=== PATIENT | male | born 1955 | race Caucasian/White ===

== ENCOUNTER 2022-01-22 14:36 | Emergency (ER) | payer MEDICARE, OTHER, SELFPAY ==
--- NOTE | 2022-01-22 14:43 | ED.URI ---
HPI - URI/Sore Throat General Chief Complaint: Upper Respiratory Infection Stated Complaint: sore throat, cough, headache Time Seen by Provider: 01/22/22 15:39 Source: patient and RN notes reviewed Mode of arrival: ambulatory Limitations: no limitations History of Present Illness HPI Narrative: 66-year-old male presents concern for 2-3 day history of sore throat, headache, cough and chest congestion. He reports he has been taking some hysu-wen-gesakkw medications without relief. He denies fever, body aches, chills, sweats, nausea, vomiting, diarrhea MD elicited complaint: cough and sore throat Related Data Home Medications Medication Instructions Recorded Confirmed gabapentin 300 mg capsule mg 01/22/22 metformin 500 mg tablet mg 01/22/22 pravastatin 10 mg tablet mg 01/22/22 sertraline 100 mg tablet mg 01/22/22 telmisartan 80 mg tablet mg 01/22/22 Allergies Allergy/AdvReac Type Severity Reaction Status Date / Time amoxicillin [From Amoxil] Allergy Intermediate Other Verified 01/22/22 15:50 Review of Systems Review of Systems: CONSTITUTIONAL: Denies malaise. Reports chills, sweats, or fever. EYES: Denies visual changes, redness, or discharge. ENT: Reports rhinorrhea, congestion. Denies sinus pain, otalgia and sore throat. CARDIOVASCULAR: Denies chest pain, palpitations, or edema. RESPIRATORY: Reports cough, chest congestion, wheezing. Denies dyspnea. GASTROINTESTINAL: Denies abdominal pain, nausea, vomiting, diarrhea SKIN: Denies rash or itching. MUSCULOSKELETAL: Denies myalgia. NEUROLOGIC: Report headache. All systems reviewed & are unremarkable except as noted in HPI and below PMFSH Comments At time of signature, agree with nursing past medical, surgical, social and family history. There is no relevant family history pertinent to the presenting complaint Exam Narrative: GENERAL: Nontoxic-appearing and in no acute distress. HEAD: Normocephalic EYES: PERRLA, conjunctivae clear ENT: Nares clear, clear discharge. Mucous membranes moist. TM pearly kennedy with dull light reflex bilaterally; no tragal tenderness. Oropharynx not erythematous without lesions. Tonsils not enlarged and without exudate, no drooling, no hoarseness, no trismus, uvula midline. NECK: Supple. No lymphadenopathy CHEST: Expiratory wheeze throughout, otherwise Clear to auscultation, breath sounds equal. No wheezing, rhonchi, rales, or stridor. No respiratory distress, speaks in full sentences. HEART: Regular rate and rhythm. No murmur heard. SKIN: Warm, dry, no rash. NEURO: Alert and oriented x3. PSYCH: Normal mood and affect Course Course Emergency Course: Patient is aware of diagnosis, understands and agrees to treatment plan. Anticipatory guidance given. Patient agrees to follow-up as directed and is aware of reasons to seek care at the emergency department. Portions of this record may have been created with voice recognition software Level of Care: Express Care Visit Vital Signs Vital signs: Reviewed. MDM - URI/Sore Throat MDM Narrative Medical decision making narrative: Differential diagnosis considered: Belle virus, strep pharyngitis, allergic rhinitis, upper respiratory tract infection, sinusitis, rhinosinusitis, nasopharyngitis. viral pharyngitis, otitis media, otitis externa, pneumonia, bronchitis, viral cough syndrome, viral syndrome, and influenza. Exam findings show no acute concerns or changes; patient is non-toxic appearing and is in no distress. Patient is appropriate for outpatient treatment and follow-up. Lab Data Attestation: I reviewed the patient's lab results. Critical Care Time Critical Care Time Critical Care Time: No Discharge Plan Discharge Clinical Impression: Bronchitis Patient Disposition: Home, Self-Care Condition: Stable Instructions: Acute Bronchitis (ED) Additional Instructions: Viral illness may last between 7-21 days; antibiotics do not cure viral illness and are NOT recommende
[2022-01-22 14:51] VITALS: BP 111/80; PULSE 110; RESP 16; TEMP 36.4; O2SAT 96
== END 2022-01-22 15:58 | disposition home or self-care (01) ==
PROVIDERS: Emergency Provider Nurse Practitioner
DX: J40 Bronchitis, not specified as acute or chronic (principal); Z20.822 Contact with and (suspected) exposure to COVID-19
CPT/HCPCS: 87081; 87426; 87804; 87880; 99213; C9803; G0463

== ENCOUNTER 2022-01-27 19:07 | Emergency (ER) | payer MEDICARE, OTHER, SELFPAY ==
[2022-01-27 19:16] VITALS: BP 129/84; PULSE 94; RESP 20; TEMP 37.4; O2SAT 97
[2022-01-27 19:20] VITALS: O2SAT 97
--- NOTE | 2022-01-27 19:34 | ED.URI ---
HPI - URI/Sore Throat General Chief Complaint: Upper Respiratory Infection Stated Complaint: chest pain, trouble breathing Time Seen by Provider: 01/27/22 19:13 Source: patient Mode of arrival: ambulatory Limitations: no limitations History of Present Illness HPI Narrative: Mr. Myers is a 66-year-old male patient presenting to clinic today with complaints of productive cough, feeling feverish, right-sided chest discomfort when taking a deep breath, and shortness of breath x5 days. He reports he is bringing up some yellow phlegm. States he was sick 4 days previously before seeking treatment on Tuesday. He reports that they did a COVID, flu, and strep test on Tuesday and that came back all negative. He reports that he has been doing the albuterol inhaler and that has not been helping his symptoms. States he has been having use it every 4 hours with minimal relief. He is concerned that he may have pneumonia. MD elicited complaint: sore throat and nasal congestion Related Data Home Medications Medication Instructions Recorded Confirmed metformin 500 mg tablet 500 mg DIRECTED 01/22/22 01/27/22 pravastatin 10 mg tablet 10 mg DIRECTED 01/22/22 01/27/22 sertraline 100 mg tablet 100 mg DIRECTED 01/22/22 01/27/22 cholestyramine (with sugar) 4 gram 1 ea PO BID 01/27/22 01/27/22 powder for susp in a packet Allergies Allergy/AdvReac Type Severity Reaction Status Date / Time amoxicillin [From Amoxil] Allergy Intermediate Other Verified 01/27/22 19:12 Review of Systems Review of Systems: Pertinent positives per HPI. Patient denies any rash, headache, visual changes, dizziness, palpitations, nausea, vomiting, diarrhea, constipation, abdominal pain, or any urinary issues. [facility] Comments At the time of my signature, I reviewed and agree with the nursing past medical, surgical, social, and family history. There is no relevant family history pertinent to the patient complaint. Exam Narrative: General: Well-developed, obese, in no apparent distress Head: Normocephalic, atraumatic Eyes: Pupils equally round and reactive to light bilaterally, EOM intact, sclera and conjunctive clear, no discharge, lids normal Ears: TMs intact and clear, ear canals clear, no drainage, grossly hearing normal. Nose: Nares patent, clear nasal discharge, no inflammation, no sinus tenderness. Mouth: Oral pharynx without lesions or masses, good dentition, MMM. Neck: Supple, trachea midline, no enlargement of anterior or posterior cervical nodes, no thyroid masses or goiter palpable. Chest: Even rise and fall of chest wall, tender to palpation over the right anterior chest, pain with inspiration over the right chest wall Cardio: Regular rate and rhythm, s1 and s2 normal, no murmur appreciated. Resp: Expiratory wheezing and inspiratory rhonchi throughout lung douglas, no rales or rubs, able to speak in full sentences, SpO2 is 97% on room Course Course Emergency Course: Portions of this record may have been created with voice recognition software. Level of Care: Express Care Visit Vital Signs Vital signs: Vital Signs Temperature 37.4 C 01/27/22 19:16 Pulse Rate 94 01/27/22 19:16 Respiratory Rate 20 01/27/22 19:16 Blood Pressure 129/84 01/27/22 19:16 Pulse Oximetry 97 01/27/22 19:16 Temperature 37.4 C 01/27/22 19:16 Pulse Rate 94 01/27/22 19:16 Respiratory Rate 20 01/27/22 19:16 Blood Pressure 129/84 01/27/22 19:16 Pulse Oximetry 97 01/27/22 19:20 Oxygen Delivery Room Air 01/27/22 19:40 Vital signs reviewed MDM - URI/Sore Throat MDM Narrative Medical decision making narrative: At the time of visit patient is resting comfortably on exam table. Patient has expiratory wheezing and inspiratory rhonchi with decreased air flow, hand-held neb treatment DuoNeb given in the clinic today and this improved his air flow. I suspect the patient has a lower respiratory infection/bronchitis. Prescriptions for
[2022-01-27] MEDS: IPRATROPIUM BR 0.02% INH SOLN 0.5 MG/2.5 ML VIAL INHALATION (19:46)
[2022-01-27] MEDS: ALBUTEROL SULFATE NEB 2.5 MG/3 ML INH INHALATION (19:47)
[2022-01-27 20:20] VITALS: O2SAT 96
== END 2022-01-27 20:21 | disposition home or self-care (01) ==
PROVIDERS: Emergency Provider Nurse Practitioner Family
DX: J20.9 Acute bronchitis, unspecified (principal)
CPT/HCPCS: 94640; 99213; G0463

== ENCOUNTER 2022-11-23 15:02 | Emergency (ER) | payer MEDICARE, OTHER, SELFPAY ==
--- NOTE | ~2022-11-23 | XR_ITS ---
XR finger 3rd LT min 2V DATE: 11/23/2022 15:34 INDICATION: Third digit pain after fall 6 weeks ago TECHNIQUE: 3 views of third digit COMPARISON: None FINDINGS: There is polyarticular osteoarthritis including proximal and distal interphalangeal joints of the third digit in addition to interphalangeal joints of the other included digits and at the juliet caphe joint. No fracture, dislocation, periosteal reaction or bone destruction of the left third digit is detected . No subcutaneous emphysema or radiopaque foreign body. IMPRESSION: Polyarticular osteoarthritis No fracture or dislocation of left third digit Reviewed, dictated and finalized at location L.
--- NOTE | ~2022-11-23 | XR_ITS ---
XR hand LT 2V DATE: 11/23/2022 15:34 INDICATION: Pain of left third digit after fall 6 weeks ago TECHNIQUE: AP and lateral views COMPARISON: None FINDINGS: There is polyarticular osteoarthritis involving the triscaphe and to a lesser extent first carpometacarpal joint. There is osteoarthritic change at multiple interphalangeal joints, most severe at the distal interphalangeal joint of the second digit. No fracture, dislocation, periosteal reaction or bone destruction, erosive change or chondrocalcinosi s is detected. IMPRESSION: Polyarticular osteoarthritis Reviewed, dictated and finalized at location L.
[2022-11-23 15:17] VITALS: BP 142/67; PULSE 99; RESP 17; TEMP 36.5; O2SAT 96
--- NOTE | 2022-11-23 16:17 | ED.UPPEXIN ---
HPI - Extremity Injury (Upper) General Chief Complaint: Extremity Injury, Upper Stated Complaint: left hand injury Time Seen by Provider: 11/23/22 15:24 Source: patient Mode of arrival: ambulatory Limitations: no limitations History of Present Illness HPI narrative: This is a 67-year-old male that presents to the emergency department for left hand pain after an injury several weeks ago. Reports he slipped and fell in the shower. Reports pain and decreased range of motion in the left hand, especially of the left third finger. Denies erythema, edema, or numbness Related Data Home Medications Medication Instructions Recorded Confirmed metformin 500 mg tablet 500 mg DIRECTED 01/22/22 01/27/22 pravastatin 10 mg tablet 10 mg DIRECTED 01/22/22 01/27/22 sertraline 100 mg tablet 100 mg DIRECTED 01/22/22 01/27/22 cholestyramine (with sugar) 4 gram 1 ea PO BID 01/27/22 01/27/22 powder for susp in a packet Allergies Allergy/AdvReac Type Severity Reaction Status Date / Time amoxicillin [From Amoxil] Allergy Intermediate Other Verified 11/23/22 15:20 Review of Systems Review of Systems: CONSTITUTIONAL: Denies fever SKIN: Denies rash MUSCULOSKELETAL: Reports joint pain, and myalgia. NEUROLOGIC: Denies numbness, or weakness. All systems reviewed & are unremarkable except as noted in HPI and below PMFSH Past Medical History Medical History (Updated 11/23/22 @ 16:28 by Toña White PA-C) History of diabetes mellitus Social History Social History (Updated 11/23/22 @ 16:30 by Toña White PA-C) Substance use: never Exam Narrative: GENERAL: Well-appearing, well-nourished, and in no acute distress. HEAD: Normocephalic, atraumatic. EYES: EOMI. EXTREMITIES: Normal range of motion, except decreased active ROM in the left third finger due to pain. No edema or obvious deformity. Normal radial pulse. Normal sensation SKIN: Warm, dry, no rash. NEURO: No focal deficits. Alert and oriented x3. PSYCH: Normal mood and affect Course Course Emergency Course: Patient was updated on work-up and agrees with plan of care Vital Signs Vital signs: Vital Signs Temperature 97.7 F 11/23/22 15:17 Pulse Rate 99 11/23/22 15:17 Respiratory Rate 17 11/23/22 15:17 Blood Pressure 142/67 H 11/23/22 15:17 Pulse Oximetry 96 11/23/22 15:17 Oxygen Delivery Room Air 11/23/22 15:17 Temperature 97.7 F 11/23/22 15:17 Pulse Rate 99 11/23/22 15:17 Respiratory Rate 17 11/23/22 15:17 Blood Pressure 142/67 H 11/23/22 15:17 Pulse Oximetry 96 11/23/22 15:17 Oxygen Delivery Room Air 11/23/22 15:17 Procedures Orthopedic Splinting/Casting Injury #1: Splinting/Casting Date: 11/23/22 Splinting/Casting Time: 16:33 Side: left Upper Extremity Injury Location: finger Upper Extremity Immobilizer: finger (other) Splint: prefabricated Pre-Formed: metal foam finger splint Pre-Procedure Neuro Vascular Exam: normal Post-Procedure Neuro Vascular Exam: normal MDM - Extremity Injury (Upper) MDM Narrative Medical decision making narrative: Patient presents to the emergency department for left third finger pain after an injury several weeks prior. Does have decreased range of motion in the finger due to pain. Reports sensation of the finger catching. He is neurovascularly intact. Left third finger and hand x-rays show polyarticular osteoarthritis. Patient was updated on work-up. Placed in a finger splint and will be given follow-up with hand surgery. He was given warnings to return to the ER Differential Diagnosis Differential diagnosis: Likely finger sprain and other (dislocation of finger, finger fracture, hand fracture) Imaging Data Radiologist's impression: ITS Impressions Finger X-Ray 11/23/22 15:37 IMPRESSION: Polyarticular osteoarthritis No fracture or dislocation of left third digit Hand X-Ray 11/23/22
== END 2022-11-23 16:24 | disposition home or self-care (01) ==
PROVIDERS: Emergency Provider Physician Assistant; PCP Internal Medicine
DX: S63.613A Unspecified sprain of left middle finger, initial encounter (principal); E11.9 Type 2 diabetes mellitus without complications; Z79.84 Long term (current) use of oral hypoglycemic drugs; M19.042 Primary osteoarthritis, left hand; M18.9 Osteoarthritis of first carpometacarpal joint, unspecified; M19.032 Primary osteoarthritis, left wrist; W18.2XXA Fall in (into) shower or empty bathtub, initial encounter; Y93.E1 Activity, personal bathing and showering
CPT/HCPCS: 29130; 73120; 73140; 99283

== ENCOUNTER 2023-01-20 08:29 | Outpatient (CLI) | payer MEDICARE, OTHER, SELFPAY ==
[2023-01-20 19:44] LABS: Alanine Aminotransferase 28 U/L (6-50); Albumin Level 4.5 g/dL (3.5-5.1); Alkaline Phosphatase 51 U/L (38-126); Anion Gap 7 mmol/L (8-16); Aspartate Amino Transferase 27 U/L (17-59); Bilirubin,Total 0.6 mg/dL (0.2-1.3); Blood Urea Nitrogen 15 mg/dL (9-20); Calcium 8.9 mg/dL (8.4-10.2); Carbon Dioxide 28 mmol/L (22-30); Chloride 100 mmol/L (98-107); Cholesterol 192 mg/dL (0-200); Estimated Glomerular Filt Rate > 60; Glucose 155 mg/dL (65-110); HDL Direct 28 mg/dL; Potassium 4.4 mmol/L (3.4-5.0); Sodium 135 mmol/L (137-145); Triglycerides 429 mg/dL (<150)
[2023-01-20 19:54] LABS: LDL Cholesterol Direct 79 mg/dL
[2023-01-20 20:00] LABS: Hemoglobin A1C 7.3 % (<5.7)
[2023-01-20 20:12] LABS: Prostate Specific Antigen 1.7 ng/mL (< OR = 4.0)
[2023-01-20 20:18] LABS: Basophils Percent Auto 0.8 % (0.2-1.2); Eosinophils Absolute Auto 0.2 K/mm3 (0-0.3); Hematocrit 41.7 % (42.0-52.0); Hemoglobin 13.6 g/dL (14.0-18.0); Immature Granulocyte Absolute 0.02 K/mm3 (0.00-0.031); Immature Granulocyte Percent A 0.4 % (0-0.5); Lymphocytes Percent Auto 30.4 % (18.3-44.2); Mean Corpuscular HGB Conc 32.6 g/dl (32-36); Mean Corpuscular Hemoglobin 30.3 pg (26-34); Mean Corpuscular Volume 92.9 fl (80-100); Mean Platelet Volume 11.2 fl (7.4-10.4); Monocytes Absolute Auto 0.4 K/mm3 (0.1-0.6); Monocytes Percent Auto 8.7 % (2.6-8.5); Neutrophils Absolute Auto 2.8 K/mm3 (1.3-6.7); Neutrophils Percent Auto 56.7 % (45.5-73.1); Platelet Count Result 181 k/mm3 (150-375); Red Blood Count 4.49 M/mm3 (4.6-6.20); White Blood Count 4.9 K/mm3 (4.5-10.0)
== END 2023-01-20 08:30 | disposition home or self-care (01) ==
LOC: ANHGOSHLAB 08:30
PROVIDERS: PCP Emergency Medicine; Visit Provider Emergency Medicine
DX: Z12.5 Encounter for screening for malignant neoplasm of prostate (principal); K58.9 Irritable bowel syndrome, unspecified; E11.9 Type 2 diabetes mellitus without complications
CPT/HCPCS: 36415; 80053; 80061; 83036; 84153; 85025; G0103

== ENCOUNTER 2023-02-07 10:29 | Outpatient (RCR) | payer MEDICARE, OTHER, SELFPAY | END 2023-05-02 08:48 | disposition home or self-care (01) | LOC: ANHDMC 10:29 | PROVIDERS: PCP Emergency Medicine; Visit Provider Emergency Medicine | DX: E11.65 Type 2 diabetes mellitus with hyperglycemia (principal); Z71.89 Other specified counseling | CPT/HCPCS: G0108 ==

== ENCOUNTER 2023-05-09 10:45 | Outpatient (RCR) | payer MEDICARE, SELFPAY ==
--- NOTE | 2023-04-20 11:34 | OTOPEVAL1 ---
Assessment and note entered by Aaron Martin, FRANSISCA/Emerald, CHT Evaluation Information Diagnosis OA left hand, trigger finger left hand, lateral epicondylitis left elbow Subjective Information Patient reports hand pain and stiffness began after he fell in the shower in October. Reports since then his middle finger has been very stiff and painful. He reports difficulties with making a fist and when he makes a fist the finger gets stuck and he has to use his right hand to pull the finger straight again. Severe pain when the finger triggers. No pain at rest otherwise. Assessment OT Clinical Summary Patient referred to OT with dx of OA, trigger finger, and lateral epicondylitis. 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 Issued an oval-8 splint to immobilize the PIP joint of this finger. Issued passive ROM/stretches to improve functional flexibility and to reduce tendon strain. He demonstrates excellent understanding of all materials. Continued skilled OT indicated to progress HEP, for manual tx, modalities, and therapeutic exercises/activities to facilitate optimal functional use of his left UE. Plan of Care Interventions Therapeutic Exercise,Manual Therapy,Therapeutic Activities,Hot Pack/Cold Pack,Check Out for Orthotic/Pr,Ultrasound,Paraffin OT Services Indicated Yes Treatment Frequency and 1x/week for 4 visits Duration These treatments will address the objective and functional deficits as defined above. The patient will be advanced safely and appropriately in order for the patient to progress towards his/her prior level of function. Additional exercises will be introduced and as well as a comprehensive home exercise program upon discharge, if needed, ?to ensure carryover of functional gains achieved in the clinic. This treatment plan has been reviewed and agreement upon by the patient.
--- NOTE | 2023-05-04 10:33 | PCOTNOTE ---
Patient called & cancelled scheduled appointment this date due to being sick.
--- NOTE | 2023-05-19 11:17 | OTOPDC ---
Assessment and note entered by Aaron Martin, OTR/L, CHT Discharge Notification 05/19/23 OT Clinical Summary Patient called to be discharged from therapy. He reports his hand doesn't seem to be getting any better. At this time he is scheduled for more testing on his hand and he wishes to pursue these options before coming back for more therapy. Discharging OT.
== END 2023-05-20 13:51 | disposition home or self-care (01) ==
LOC: ANHOT 10:45
PROVIDERS: PCP Emergency Medicine; Visit Provider Emergency Medicine
DX: M19.042 Primary osteoarthritis, left hand (principal); M65.332 Trigger finger, left middle finger; M77.12 Lateral epicondylitis, left elbow
CPT/HCPCS: 97035; 97110; 97165; L3925

== ENCOUNTER 2023-05-24 13:27 | Outpatient (CLI) | payer MEDICARE, SELFPAY ==
--- NOTE | 2023-05-24 14:00 | NEURO_ITS ---
Impression: # Complains of left upper extremity trauma/numbness. 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 # Needle/EMG exam mildly neurogenic in proximal muscles. # Clinical correlation recommended; Could be related to trauma. Nerve Conduction Studies Anti Sensory Summary Table Stim Site NR Peak (ms) P-T Amp (?V) Site1 Site2 Delta-P (ms) Dist (cm) Bright (m/s) Left Median Anti Sensory (2-3nd Digit) Wrist 3.0 24.0 Wrist 2-3nd Digit 3.0 14.0 47 Wrist 3.2 33.6 Wrist 2-3nd Digit 3.0 14.0 47 Left Radial Anti Sensory (Base 1st Digit) Wrist 1.8 25.4 Wrist Base 1st Digit 1.8 0.0 Left Ulnar Anti Sensory (5th Digit) Wrist 2.9 21.1 Wrist 5th Digit 2.9 14.0 48 Motor Summary Table Stim Site NR Onset (ms) O-P Amp (mV) Site1 Site2 Delta-0 (ms) Dist (cm) Bright (m/s) Left Median Motor (Abd Poll Brev) Wrist 2.8 3.6 Elbow Wrist 5.6 30.0 54 Elbow 8.4 2.7 Left Ulnar Motor (Abd Dig Minimi) Wrist 2.3 5.7 A Elbow Wrist 6.5 33.0 51 A Elbow 8.8 3.8 B Elbow Wrist 4.7 22.0 47 B Elbow 7.0 2.7 F Wave Studies NR F-Lat (ms) L-R F-Lat (ms) Left Median (Mrkrs) (Abd Poll Brev) 30.03 Left Ulnar (Mrkrs) (Abd Dig Min) 31.70 EMG Side Muscle Nerve Root Ins Act Fibs Amp Dur Recrt Comment Left 1stDorInt Ulnar C8-T1 Nml Nml Nml >12ms +1 Left Ext Indicis Radial (Post Int) C7-8 Nml Nml Nml >12ms +1 Left Ext Digitorum Radial (Post Int) C7-8 Nml Nml Nml Nml Nml Left BrachioRad Radial C5-6 Nml Nml Nml Nml Nml Left PronatorTeres Median C6-7 Nml Nml Nml Nml Nml Left Abd Poll Brev Median C8-T1 Nml Nml Nml Nml Nml Left ABD Dig Min Ulnar C8-T1 Nml Nml Nml Nml Nml Left Biceps Musculocut C5-6 Nml Nml Nml Nml Nml Left Triceps Radial C6-7-8 Nml Nml Nml >12ms +1 Left Deltoid Axillary C5-6 Nml Nml Nml Nml Nml Left PronatorQuad Median (Ant Int) C7-8, Nml Nml Nml Nml Nml Left FlexCarpiUln Ulnar C8,T1 Nml Nml Nml Nml Nml Left Abd Poll Long Radial (Post Int) C7-8 Nml Nml Nml Nml Nml MTDD
== END 2023-05-24 13:28 | disposition home or self-care (01) ==
PROVIDERS: PCP Emergency Medicine; Visit Provider Emergency Medicine
DX: R20.2 Paresthesia of skin (principal); G56.22 Lesion of ulnar nerve, left upper limb
CPT/HCPCS: 95886; 95909

== ENCOUNTER 2023-06-20 15:21 | Outpatient (CLI) | payer MEDICARE, SELFPAY ==
[2023-06-20 18:45] LABS: Hemoglobin A1C 8.1 % (<5.7)
[2023-06-20 19:09] LABS: Vitamin D 25 Hydroxy 39.2 ng/mL
[2023-06-20 19:11] LABS: Basophils Absolute Auto 0.1 K/mm3 (0.0-0.1); Basophils Percent Auto 0.8 % (0.2-1.2); Eosinophils Absolute Auto 0.1 K/mm3 (0-0.3); Eosinophils Percent Auto 1.9 % (0-4.4); Hematocrit 43.4 % (42.0-52.0); Hemoglobin 14.2 g/dL (14.0-18.0); Immature Granulocyte Absolute 0.01 K/mm3 (0.00-0.031); Immature Granulocyte Percent A 0.2 % (0-0.5); Lymphocytes Absolute Auto 1.79 K/mm3 (0.9-3.2); Lymphocytes Percent Auto 28.8 % (18.3-44.2); Mean Corpuscular HGB Conc 32.7 g/dl (32-36); Mean Corpuscular Volume 91.8 fl (80-100); Mean Platelet Volume 11.8 fl (7.4-10.4); Monocytes Absolute Auto 0.5 K/mm3 (0.1-0.6); Monocytes Percent Auto 7.6 % (2.6-8.5); Neutrophils Absolute Auto 3.8 K/mm3 (1.3-6.7); Neutrophils Percent Auto 60.7 % (45.5-73.1); Platelet Count Result 183 k/mm3 (150-375); Red Blood Count 4.73 M/mm3 (4.6-6.20); Red Cell Distribution Width 12.7 % (11.5-14.5); White Blood Count 6.2 K/mm3 (4.5-10.0)
[2023-06-20 19:23] LABS: Thyroid Stimulating Hormone Reflex 0.928 uIU/mL (0.465-4.68)
[2023-06-20 19:56] LABS: Alanine Aminotransferase 33 U/L (6-50); Albumin Level 4.6 g/dL (3.5-5.1); Alkaline Phosphatase 54 U/L (38-126); Anion Gap 9 mmol/L (8-16); Aspartate Amino Transferase 53 U/L (17-59); Bilirubin,Total 0.9 mg/dL (0.2-1.3); Blood Urea Nitrogen 16 mg/dL (9-20); Calcium 9.3 mg/dL (8.4-10.2); Carbon Dioxide 26 mmol/L (22-30); Chloride 103 mmol/L (98-107); Cholesterol 192 mg/dL (0-200); Estimated Glomerular Filt Rate > 60; Glucose 138 mg/dL (65-110); HDL Direct 31 mg/dL; Potassium 4.8 mmol/L (3.4-5.0); Sodium 138 mmol/L (137-145); Triglycerides 380 mg/dL (<150)
[2023-06-20 20:11] LABS: LDL Cholesterol Direct 87 mg/dL
== END 2023-06-20 15:22 | disposition home or self-care (01) ==
LOC: ANHGOSHLAB 15:23
PROVIDERS: PCP Emergency Medicine; Visit Provider Emergency Medicine
DX: R53.83 Other fatigue (principal); F32.9 Major depressive disorder, single episode, unspecified; E11.9 Type 2 diabetes mellitus without complications
CPT/HCPCS: 36415; 80053; 80061; 82306; 82607; 83036; 84443; 85025

== ENCOUNTER 2023-06-21 13:56 | Outpatient (NON) | payer MEDICARE, SELFPAY ==
[2023-06-21 19:57] LABS: Creatinine Urine 194.5 mg/dL
[2023-06-21 20:01] LABS: MALB Creatinine Ratio 11.4 mg/g (0-30); Microalbumin Urine Random 22.2 mg/L (0-16.7)
== END 2023-06-21 13:57 | disposition home or self-care (01) ==
PROVIDERS: PCP Emergency Medicine; Visit Provider Emergency Medicine
DX: E11.9 Type 2 diabetes mellitus without complications (principal)
CPT/HCPCS: 82043

== ENCOUNTER 2023-09-22 08:09 | Day surgery (SDC) | payer MEDICARE, SELFPAY ==
[2023-08-26 11:27] VITALS: BMI 32.5
--- NOTE | 2023-09-22 07:22 | WPDANESEPPF ---
Anes - Initial Pre Proc Eval Procedure: Operation Date: 09/22/23 10:30 Proposed Procedures p Screening Colonoscopy - Alexander Couch MD Date/Time: 09/22/23 07:22 Surgeon: Alexander Couch MD Pre Op Diagnosis: Neoplasm Screening Patient Data Age: 68 Gender: M Height: 1.85 m Weight: 109 kg Allergies Allergy/AdvReac Type Severity Reaction Status Date / Time amoxicillin [From Amoxil] Allergy Intermediate Other Verified 09/22/23 09:11 Home Medications Medication Instructions Recorded Confirmed Type albuterol sulfate 90 mcg/actuation 2 puff inhalation QID PRN 01/22/22 09/22/23 Rx aerosol inhaler shortness of breath or wheezing #8.5 grams cholestyramine (with sugar) 4 gram 1 ea PO BID 01/27/22 09/22/23 History powder for susp in a packet pravastatin 10 mg tablet 10 mg PO QHS #90 tabs 01/19/23 09/22/23 Rx telmisartan 80 mg tablet 80 mg PO DAILY #90 tabs 01/19/23 09/22/23 Rx blood sugar diagnostic (OneTouch #100 ea 02/08/23 09/22/23 Rx Verio test strips) lancets 30 gauge (Onetouch Delica #100 ea 02/08/23 09/22/23 Rx Safety Lancet) albuterol sulfate 90 mcg/actuation 2 puff inhalation Q4-6H PRN 05/04/23 09/22/23 Rx aerosol inhaler shortness of breath or wheezing 30 days #8.5 grams metformin 500 mg tablet 1,000 mg PO BID #120 tabs 05/16/23 09/22/23 Rx meloxicam 15 mg tablet 15 mg PO DAILY #90 tabs 07/29/23 09/22/23 Rx semaglutide 0.25 mg or 0.5 mg (2 0.25 mg (0.368 mL) subcut WEEKLY 08/24/23 09/22/23 Rx mg/3 mL) subcutaneous pen injector #3 mL (Ozempic) Patient hx anesthesia problems: none Family hx anesthesia problems: none Results Review: All pre-operative results and documents have been reviewed as part of the pre-operative evaluation. [facility] Past Medical History Medical History (Updated 09/22/23 @ 07:22 by Romel Worthy DO) Allergic Arthritis History of diabetes mellitus Hyperlipidemia Hypertension IBS (irritable bowel syndrome) Surgical History Surgical History (Updated 09/22/23 @ 07:22 by Romel Worthy DO) History of cholecystectomy Family History Family History Father Depression Mother Hypertension Bladder cancer Sibling Diabetes mellitus Hypertension Grandparent Diabetes mellitus Cerebrovascular accident Social History Social History Smoking status: Never smoker Substance use: never Substance use type: does not use Lack of Transportation: No Lack of Food: Never True Current Housing: I Have Housing Concerned About Future Housing: No Difficulty Paying Gas/Electric Bills: No Difficulty Paying for Meds: No Currently Unemployed: No Education: Trade/Vocational Certificate Difficulty w/ Childcare or Family Care: No Living arrangements: with family Anes - Eval Final PreProcedure Day of Procedure 09/22/23 07:22 Patient weight: obese Heart: regular rate and rhythm Lungs: clear to auscultation Airway: Mallampati scale class III Neurological: alert and oriented Last oral intake: >/= 8 hours ASA classification: III Emergent: no Anesthetic plan: proceed Anesthesia type and monitoring: general GIVS and standard monitoring Results Review: All pre-operative results and documents have been reviewed as part of the pre-operative evaluation. Informed Consent: The patient's anesthetic plan and its attendant risks and benefits were discussed with the patient/family/POA. Questions were solicited and answers provided to the satisfaction of the patient/family/POA.
[2023-09-22 09:15] VITALS: BP 136/77; PULSE 83; RESP 18; TEMP 36.9; O2SAT 96
[2023-09-22] MEDS: LACTATED RINGERS 1,000 ML 150 ML IV CONT (09:23)
[2023-09-22 09:38] LABS: Glucose Point of Care 140 mg/dl (65-105)
--- NOTE | 2023-09-22 09:51 | PM.HPGS ---
History of Present Illness History of Present Illness Consent: Risks, benefits, and alternatives have been discussed and questions answered. Patient agrees to proceed with procedure. Chief complaint: Neoplasm Screening Narrative: Lee Myers is a 68 year old male presents for screening colonoscopy. Patient's current weight appetite and bowel movements are normal. Patient denies abdominal pain. He has had no bleeding. Family history noncontributory. Review of Systems Review of Systems: All systems reviewed & are unremarkable except as noted in HPI and below PMFSH Past Medical History Medical History (Updated 09/22/23 @ 07:22 by Romel Worthy DO) Allergic Arthritis History of diabetes mellitus Hyperlipidemia Hypertension IBS (irritable bowel syndrome) Surgical History Surgical History (Updated 09/22/23 @ 07:22 by Romel Worthy DO) History of cholecystectomy Family History Family History Father Depression Mother Hypertension Bladder cancer Sibling Diabetes mellitus Hypertension Grandparent Diabetes mellitus Cerebrovascular accident Social History Social History Smoking status: Never smoker Substance use: never Substance use type: does not use Lack of Transportation: No Lack of Food: Never True Current Housing: I Have Housing Concerned About Future Housing: No Difficulty Paying Gas/Electric Bills: No Difficulty Paying for Meds: No Currently Unemployed: No Education: Trade/Vocational Certificate Difficulty w/ Childcare or Family Care: No Living arrangements: with family Meds Home Medications and Allergies Home Medications Medication Instructions Recorded Confirmed Type albuterol sulfate 90 mcg/actuation 2 puff inhalation QID PRN 01/22/22 09/22/23 Rx aerosol inhaler shortness of breath or wheezing #8.5 grams cholestyramine (with sugar) 4 gram 1 ea PO BID 01/27/22 09/22/23 History powder for susp in a packet pravastatin 10 mg tablet 10 mg PO QHS #90 tabs 01/19/23 09/22/23 Rx telmisartan 80 mg tablet 80 mg PO DAILY #90 tabs 01/19/23 09/22/23 Rx blood sugar diagnostic (OneTouch #100 ea 02/08/23 09/22/23 Rx Verio test strips) lancets 30 gauge (Onetouch Delica #100 ea 02/08/23 09/22/23 Rx Safety Lancet) albuterol sulfate 90 mcg/actuation 2 puff inhalation Q4-6H PRN 05/04/23 09/22/23 Rx aerosol inhaler shortness of breath or wheezing 30 days #8.5 grams metformin 500 mg tablet 1,000 mg PO BID #120 tabs 05/16/23 09/22/23 Rx meloxicam 15 mg tablet 15 mg PO DAILY #90 tabs 07/29/23 09/22/23 Rx semaglutide 0.25 mg or 0.5 mg (2 0.25 mg (0.368 mL) subcut WEEKLY 08/24/23 09/22/23 Rx mg/3 mL) subcutaneous pen injector #3 mL (Ozempic) Allergies Allergy/AdvReac Type Severity Reaction Status Date / Time amoxicillin [From Amoxil] Allergy Intermediate Other Verified 09/22/23 09:11 Vital Signs Vital Signs - 24 hr 09/22/23 09:15 Temperature 98.5 F Pulse Rate 83 Respiratory Rate 18 Blood Pressure 136/77 Pulse Oximetry 96 Oxygen Delivery Room Air Exam Narrative: Physical exam reveals patient to be alert. Vital signs stable. HEENT exam is unremarkable. Patient is anicteric. Lungs are clear to auscultation and percussion. Heart is without murmur or extra sounds. Abdomen bowel sounds are present soft nontender with no hepatosplenomegaly. Digital external rectal exam normal. Assessment and Plan Assessment and plan (1) Screening for colon cancer: Code(s): Z12.11 - Encounter for screening for malignant neoplasm of colon Status: Acute Assessment and Plan: Patient presents today for screening colonoscopy. He appears to be at average risk for colon polyps. Further recommendations may be given after endoscopy.
[2023-09-22 10:38] VITALS: BP 134/66; PULSE 95; RESP 16; O2SAT 96
[2023-09-22 10:48] VITALS: BP 125/95; PULSE 88; RESP 18; O2SAT 97
--- NOTE | 2023-09-22 10:55 | WPDANESPN ---
Anes - Prog Note Post-Op Date/Time: 09/22/23 10:55 Cardiovascular status: normal Respiratory status: normal Airway patency: baseline Mental status: baseline Post-Op hydration status: normal Vital Signs: Last Vital Signs Temp 36.9 C 09/22/23 09:15 Pulse 88 09/22/23 10:48 Resp 18 09/22/23 10:48 BP 125/95 H 09/22/23 10:48 Pulse Ox 97 09/22/23 10:48 O2 Del Method Room Air 09/22/23 10:48 Pain Score (VAS): 0 I/O: Intake & Output 09/21/23 09/22/23 09/22/23 23:59 07:59 15:59 Intake Total 800 Balance 800 09/22/23 09:30 POC Capillary Glucose 140 H Post-procedural complaints: none Patient Feedback: Patient satisfied with anesthetic care. Other Findings: Patient vital signs back to baseline. Patient denies nausea and vomiting. Patient's pain under control. Patient OK for discharge.
[2023-09-22 10:58] VITALS: BP 134/80; PULSE 76; RESP 18; O2SAT 97
== END 2023-09-22 11:10 | disposition home or self-care (01) ==
PROVIDERS: PCP Emergency Medicine; Visit Provider Internal Medicine Gastroenterology
PROC: 0DJD8ZZ Inspection of Lower Intestinal Tract, Via Natural or Artificial Opening Endoscopic (ICD-10-PCS; CPT 45378; principal; 2023-09-22 10:30)
DX: Z12.11 Encounter for screening for malignant neoplasm of colon (principal); K57.30 Diverticulosis of large intestine without perforation or abscess without bleeding; K64.8 Other hemorrhoids
CPT/HCPCS: G0121

== ENCOUNTER 2023-12-20 07:55 | Outpatient (CLI) | payer MEDICARE, SELFPAY ==
[2023-12-20 13:32] LABS: Alanine Aminotransferase 25 U/L (6-50); Albumin Level 4.4 g/dL (3.5-5.1); Alkaline Phosphatase 45 U/L (38-126); Anion Gap 3 mmol/L (4-12); Aspartate Amino Transferase 46 U/L (17-59); Bilirubin,Total 0.5 mg/dL (0.2-1.3); Blood Urea Nitrogen 14 mg/dL (9-20); Calcium 8.7 mg/dL (8.4-10.2); Carbon Dioxide 32 mmol/L (22-30); Chloride 95 mmol/L (98-107); Cholesterol 164 mg/dL (0-200); Estimated Glomerular Filt Rate > 60; Glucose 88 mg/dL (65-110); HDL Direct 27 mg/dL; Potassium 4.6 mmol/L (3.4-5.0); Sodium 130 mmol/L (137-145); Triglycerides 269 mg/dL (<150)
[2023-12-20 13:43] LABS: LDL Cholesterol Direct 74 mg/dL
[2023-12-20 14:01] LABS: Prostate Specific Antigen 2.1 ng/mL (< OR = 4.0)
[2023-12-20 15:06] LABS: Hemoglobin A1C 6.6 % (<5.7)
== END 2023-12-20 07:56 | disposition home or self-care (01) ==
PROVIDERS: PCP Emergency Medicine; Visit Provider Emergency Medicine
DX: E78.1 Pure hyperglyceridemia (principal); E11.9 Type 2 diabetes mellitus without complications; Z12.5 Encounter for screening for malignant neoplasm of prostate; Z80.42 Family history of malignant neoplasm of prostate
CPT/HCPCS: 36415; 80053; 80061; 83036; 84153; G0103

== ENCOUNTER 2024-02-11 14:04 | Emergency (ER) | payer MEDICARE, SELFPAY ==
[2024-02-11 14:49] VITALS: BP 111/76; PULSE 83; RESP 16; TEMP 36.6; O2SAT 98
--- NOTE | 2024-02-11 15:03 | ED_ITS ---
HPI - Eye Problem General Chief complaint: Eye Problems Stated complaint: eye irritation Time Seen by Provider: 02/11/24 15:03 Source: patient, RN notes reviewed and old records reviewed Mode of arrival: ambulatory Limitations: no limitations History of Present Illness HPI Narrative: 68 year male to [facility] Care with complaint bilateral eye redness with drainage for 10 days. Patient reports bilateral crusting in the mornings upon awakening. Patient states he attempted to treat at home by washing his eyes out with baby shampoo. Patient denies injury, recent illness, decreased vision, pain, pertinent medical history. Patient resting comfortably in exam room in no acute distress. Related Data Home Medications Medication Instructions Recorded Confirmed cholestyramine (with sugar) 4 gram 1 ea PO BID 01/27/22 02/11/24 powder for susp in a packet Allergies Allergy/AdvReac Type Severity Reaction Status Date / Time amoxicillin [From Amoxil] Allergy Intermediate Other Verified 02/11/24 15:07 Review of Systems Review of Systems: All systems reviewed & are unremarkable except as noted in HPI and below Constitutional: Constitutional: Reports no additional constitutional complaints Eyes: Eyes: Reports as per HPI, Denies change in vision, Denies diplopia, Reports eye discharge ( bilateral), Reports irritation ( Bilateral) and Denies eye pain ENT: Reports system reviewed and no additional complaints, except as documented Cardiovascular: Cardiovascular: Reports no additional cardiovascular complaints, Denies chest pain and Denies dyspnea Respiratory: Respiratory: Reports no additional respiratory complaints, Denies cough and Denies dyspnea Musculoskeletal: Musculoskeletal: Reports no additional musculoskeletal compla ints Neurologic: Reports system reviewed and no additional complaints, except as documented Psychiatric: Psychiatric: Reports no additional psychiatric complaints PMFSH Past Medical History Medical History Allergic Arthritis History of diabetes mellitus Hyperlipidemia Hypertension IBS (irritable bowel syndrome) Surgical History Surgical History History of cholecystectomy Family History Family History Father Depression Mother Hypertension Bladder cancer Sibling Diabetes mellitus Hypertension Grandparent Diabetes mellitus Cerebrovascular accident Social History Social History Smoking status: Never smoker Substance use: never Substance use type: does not use Lack of Transportation: No Lack of Food: Never True Current Housing: I Have Housing Concerned About Future Housing: No Difficulty Paying Gas/Electric Bills: No Difficulty Paying for Meds: No Currently Unemployed: No Education: Trade/Vocational Certificate Difficulty w/ Childcare or Family Care: No Living arrangements: with family Comments At the time of my signature, I reviewed and agree with the nursing past medical, surgical, social, and family history. There is no relevant family history pertinent to the patient complaint. Exam Const: General: cooperative, healthy appearing, comfortable, no acute distress, alert and well nourished Nutritional Appearance: well nourished Orientation/consciousness: patient oriented x3 Limitations: no limitations HENMT: Head: normal to inspection Ears: external ears normal Face/Nose/Sinus: Normal external nose present, Normal nares present, normal facial exam, No erythema and No edema Face and sinus: normal facial exam, no erythema and no edema Mouth: Yes Normal oral and palatal mucosa present Eyes: Visual Douglas: normal visual douglas by confrontation Alignment and Position: alignment normal and position normal Periorbital: periorbital findings normal Eyelids: eyelids normal Conjunctivae: conjunctival abnormality bilateral conjunctival injection Sclera: scleral abnormality bilateral scleral injection Pupils: Equal, round and reactive pupils present Neck: Neck: normal visual inspection, full ROM and no meningeal signs Chest: Chest palpation & inspection: normal inspection of the chest Resp: Effort & Inspection: normal respiratory effort and able to speak in complete sentences Auscultation: clear to auscultation bilaterally Cardio: Jugular venous distension: no JVD Rate: regular rate Rhythm: regular rhythm Back/Spine/Pelvis: Cervical Spine: cervical ROM normal Skin: General skin exam: normal color, no rashes or lesions noted and turgor normal Neuro: General: patient oriented x3, gait normal, moves all extremities and no meningeal signs Speech: normal speech Gait exam (Neuro): Normal gait present Extrem: General: normal to inspection, full ROM and capillary refill normal Psych: Appearance: grossly normal and well kempt Course Course Emergency Course: Some parts of this dictation were generated by voice recognition software and may contain typographical and/or grammatical inaccuracies. Level of Care: Express Care Visit Vital Signs Vital signs: Vital Signs Temperature 36.6 C 02/11/24 14:49 Pulse Rate 83 02/11/24 14:49 Respiratory Rate 16 02/11/24 14:49 Blood Pressure 111/76 02/11/24 14:49 Pulse Oximetry 98 02/11/24 14:49 Temperature 36.6 C 02/11/24 14:49 Pulse Rate 83 02/11/24 14:49 Respiratory Rate 16 02/11/24 14:49 Blood Pressure 111/76 02/11/24 14:49 Pulse Oximetry 98 02/11/24 14:49 reviewed MDM - Eye Problem MDM Narrative Medical decision making narrative: 68 year male to [facility] Care with complaint bilateral eye redness with drainage for 10 days. Patient reports bilateral crusting in the mornings upon awakening. Patient states he attempted to treat at home by washing his eyes out with baby shampoo. Patient denies injury, recent illness, decreased vision, pain, pertinent medical history. Patient resting comfortably in exam room in no acute distress. on exam, bilateral scleral and bilateral conjunctival injection. Dried discharge in to right lateral eye. Exam otherwise unremarkable. Consistent with bacterial conjunctivitis. Patient is sitting comfortably in exam room nontoxic in appearance. Patient appropriate for outpatient treatment and follow-up. Discharge instructions reviewed with patient, as well as provided in writing per nursing staff. The instructions also include specific and strict return/GO TO THE ER as well as f/u information. All questions have been answered, and the patient deny any further questions with discharge and discharge plan. Some parts of this dictation were generated by voice recognition software and may contain typographical and/or grammatical inaccuracies. Differential Diagnosis Differential diagnosis: Likely corneal abrasion, conjunctivitis, acute iritis, hyphema, periorbital cellulitis, subconjunctival hemorrhage, glaucoma, corneal ulcer and ruptured globe Discharge Plan Discharge Clinical Impression: Bacterial conjunctivitis of both eyes Patient Disposition: Home, Self-Care Condition: Stable Instructions: Conjunctivitis (ED) Additional Instructions: please review attached instructions regarding conjunctivitis and implement suggestions tolerated for new or worsening symptoms please go directly to the emergency department Prescriptions: New ofloxacin 0.3 % drops See Rx Instructions EACH EYE .COMPLEX Qty: 10 0RF Rx Instructions: put 1-2 drps into affected eye(s) every 2-4 h x 2 days, then 1-2 drps 4 times/day days 3-7 No Action cholestyramine (with sugar) 4 gram powder in packet 1 ea PO BID albuterol sulfate 90 mcg/actuation HFA aerosol inhaler 2 puff INHALATION QID PRN (Reason: shortness of breath or wheezing) Qty: 8.5 0RF pravastatin 20 mg tablet 20 mg PO QHS Qty: 90 1RF (DME) OneTouch Verio test strips Strip See Rx Instructions .Route Qty: 100 3RF Rx Instructions: Check blood sugar daily (DME) lancets [Onetouch Delica Safety Lancet] 30 gauge misc See Rx Instructions .Route Qty: 100 3RF Rx Instructions: Check blood sugar daily albuterol sulfate 90 mcg/actuation HFA aerosol inhaler 2 puff inhalation Q4-6H PRN (Reason: shortness of breath or wheezing) 30 Days Qty: 8.5 0RF metformin 500 mg tablet 1,000 mg PO BID Qty: 120 3RF Ozempic 0.25 mg or 0.5 mg (2 mg/3 mL) pen injector 0.5 mg subcut WEEKLY Qty: 3 2RF meloxicam 15 mg tablet 15 mg PO DAILY Qty: 90 1RF telmisartan 80 mg tablet 80 mg PO DAILY Qty: 90 3RF Follow-up/Referrals: Edwin Sauceda MD [Primary Care Provider] -
== END 2024-02-11 15:31 | disposition home or self-care (01) ==
PROVIDERS: Emergency Provider Nurse Practitioner Family; PCP Emergency Medicine
DX: H10.9 Unspecified conjunctivitis (principal); M19.90 Unspecified osteoarthritis, unspecified site; E11.9 Type 2 diabetes mellitus without complications; I10 Essential (primary) hypertension; E78.5 Hyperlipidemia, unspecified
CPT/HCPCS: 99213; G0463

== ENCOUNTER 2024-03-17 13:44 | Emergency (ER) | payer MEDICARE, SELFPAY ==
--- NOTE | 2024-03-17 13:54 | ED_ITS ---
HPI - URI/Sore Throat General Chief Complaint: Upper Respiratory Infection Stated Complaint: Cough/Congestion/Headache Time Seen by Provider: 03/17/24 14:30 Source: patient and RN notes reviewed Mode of arrival: ambulatory Limitations: no limitations History of Present Illness HPI Narrative: 68-year-old male presents with concern for for day history of cough, chest congestion, headache. Reports cough keeping him awake at night. Reports general malaise. Denies fever MD elicited complaint: cough Related Data Home Medications ?Medication ?Instructions ?Recorded ?Confirmed ?Last Taken ?Type cholestyramine (with sugar) 4 gram 1 ea PO BID 01/27/22 02/11/24 Unknown History powder for susp in a packet Allergies Allergy/AdvReac Type Severity Reaction Status Date / Time amoxicillin (From Amoxil) Allergy Intermediate Other Verified 02/11/24 15:07 Review of Systems Review of Systems: CONSTITUTIONAL: Denies malaise, chills, sweats, or fever. EYES: Denies visual changes, redness, or discharge. ENT: Reports rhinorrhea, congestion CARDIOVASCULAR: Denies chest pain, palpitations, or edema. RESPIRATORY: Reports cough and chest congestion. Denies dyspnea. GASTROINTESTINAL: Denies abdominal pain, nausea, vomiting, diarrhea SKIN: Denies rash or itching. MUSCULOSKELETAL: Denies myalgia. NEUROLOGIC: Denies headache. All systems reviewed & are unremarkable except as noted in HPI and below PMFSH Past Medical History Medical History Allergic Arthritis History of diabetes mellitus Hyperlipidemia Hypertension IBS (irritable bowel syndrome) Surgical History Surgical History History of cholecystectomy Family History Family History Father Depression Mother Hypertension Bladder cancer Sibling Diabetes mellitus Hypertension Grandparent Diabetes mellitus Cerebrovascular accident Social History Social History Smoking status: Never smoker Substance use: never Substance use type: does not use Lack of Transportation: No Lack of Food: Never True Current Housing: I Have Housing Concerned About Future Housing: No Difficulty Paying Gas/Electric Bills: No Difficulty Paying for Meds: No Currently Unemployed: No Education: Trade/Vocational Certificate Difficulty w/ Childcare or Family Care: No Living arrangements: with family Comments At time of signature, agree with nursing past medical, surgical, social and family history. There is no relevant family history pertinent to the presenting complaint Exam Narrative: GENERAL: Well-appearing, well-nourished, and in no acute distress. HEAD: Normocephalic EYES: PERRLA, conjunctivae clear ENT: Nares clear, turbinates edematous and erythematous, clear discharge. Mucous membranes moist. TM pearly kennedy with dull light reflex bilaterally; no tragal tenderness. Oropharynx not erythematous without lesions. Tonsils not enlarged and without exudate, no drooling, no hoarseness, no trismus, uvula midline. NECK: Supple. No lymphadenopathy CHEST: Scattered rhonchi, breath sounds equal. No wheezing, rales, or stridor. No respiratory distress, speaks in full sentences. HEART: Regular rate and rhythm. No murmur heard. SKIN: Warm, dry, no rash. NEURO: Alert and oriented x3. PSYCH: Normal mood and affect Course Course Emergency Course: Patient is aware of diagnosis, understands and agrees to treatment plan. Anticipatory guidance given. Patient agrees to follow-up as directed and is aware of reasons to seek care at the emergency department. Portions of this record may have been created with voice recognition software Level of Care: Express Care Visit Vital Signs Vital signs: Vital Signs Temperature 98.1 F 03/17/24 14:00 Pulse Rate 106 H 03/17/24 14:00 Respiratory Rate 16 03/17/24 14:00 Blood Pressure 107/69 03/17/24 14:00 Pulse Oximetry 96 03/17/24 14:00 Temperature 98.1 F 03/17/24 14:00 Pulse Rate 106 H 03/17/24 14:00 Respiratory Rate 16 03/17/24 14:00 Blood Pressure 107/69 03/17/24 14:00 Pulse Oximetry 96 03/17/24 14:00 Reviewed. MDM - URI/Sore Throat MDM Narrative Medical decision making narrative: Differential diagnosis considered: Belle virus, strep pharyngitis, allergic rhinitis, upper respiratory tract infection, sinusitis, rhinosinusitis, nasopharyngitis. viral pharyngitis, otitis media, otitis externa, pneumonia, bronchitis, viral cough syndrome, viral syndrome, and influenza. Exam findings show no acute concerns or changes; patient is non-toxic appearing and is in no distress. Patient is appropriate for outpatient treatment and follow-up. Lab Data Attestation: I reviewed the patient's lab results. Labs: Lab Results 03/17/24 Range/Units 14:28 POC Influenza A Ag Negative (Negative) POC Influenza B Ag Negative (Negative) POC SARS CoV-2 Ag Negative (Negative) Critical Care Time Critical Care Time Critical Care Time: No Discharge Plan Discharge Clinical Impression: Lower respiratory tract infection Patient Disposition: Home, Self-Care Condition: Stable Instructions: Antibiotic Form, Acute Cough (ED) Additional Instructions: Take medications as prescribed Recommend antihistamine such as Benadryl at night time and Zyrtec or Molly during the day Use your inhaler as needed for cough, wheezing, shortness of breath or chest tightness. Also, recommend symptomatic treatment includes: rest, fluids, and increase humidity of the air at home. Recommend Acetaminophen as directed on the bottle to reduce fever, pain, headache. Avoid smoking/second-hand smoke. Please schedule a follow-up visit with your personal physician for further evalu ation and treatment within 3-5days. If your symptoms persist, change or worsen significantly before you can contact your personal physician then please, without delay, go to the emergency department for further evaluation. Patient Language: Azerbaijani Prescriptions: New azithromycin [Zithromax Z-Vitaliy] 250 mg tablet See Rx Instructions .ROUTE .COMPLEX Qty: 6 0RF Rx Instructions: take 500 mg today (day 1), then 250 mg for 4 days (days 2-5) methylprednisolone [Medrol (Vitaliy)] 4 mg tablets,dose pack See Rx Instructions .ROUTE .COMPLEX Qty: 21 0RF Rx Instructions: orally per package directions No Action cholestyramine (with sugar) 4 gram powder in packet 1 ea PO BID albuterol sulfate 90 mcg/actuation HFA aerosol inhaler 2 puff INHALATION QID PRN (Reason: shortness of breath or wheezing) Qty: 8.5 0RF ofloxacin 0.3 % drops See Rx Instructions EACH EYE .COMPLEX Qty: 10 0RF Rx Instructions: put 1-2 drps into affected eye(s) every 2-4 h x 2 days, then 1-2 drps 4 times/day days 3-7 pravastatin 20 mg tablet 20 mg PO QHS Qty: 90 1RF (DME) OneTouch Verio test strips Strip See Rx Instructions .Route Qty: 100 3RF Rx Instructions: Check blood sugar daily (DME) lancets [Onetouch Delica Safety Lancet] 30 gauge misc See Rx Instructions .Route Qty: 100 3RF Rx Instructions: Check blood sugar daily albuterol sulfate 90 mcg/actuation HFA aerosol inhaler 2 puff inhalation Q4-6H PRN (Reason: shortness of breath or wheezing) 30 Days Qty: 8.5 0RF metformin 500 mg tablet 1,000 mg PO BID Qty: 120 3RF Ozempic 0.25 mg or 0.5 mg (2 mg/3 mL) pen injector 0.5 mg subcut WEEKLY Qty: 3 2RF meloxicam 15 mg tablet 15 mg PO DAILY Qty: 90 1RF telmisartan 80 mg tablet 80 mg PO DAILY Qty: 90 3RF Follow-up/Referrals: Enma Ryan, [employer] [Primary Care Provider] -
[2024-03-17 14:00] VITALS: BP 107/69; PULSE 106; RESP 16; TEMP 36.7; O2SAT 96
[2024-03-17 14:30] LABS: EDCOVIDSCREEN Negative (Negative); EDINFLUASCREEN Negative (Negative); EDINFLUBSCREEN Negative (Negative)
== END 2024-03-17 14:50 | disposition home or self-care (01) ==
PROVIDERS: Emergency Provider Nurse Practitioner; PCP Nurse Practitioner Family
DX: J22 Unspecified acute lower respiratory infection (principal); I10 Essential (primary) hypertension; E11.9 Type 2 diabetes mellitus without complications; E78.5 Hyperlipidemia, unspecified; Z20.822 Contact with and (suspected) exposure to COVID-19
CPT/HCPCS: 87426; 87804; 99213; G0463

== ENCOUNTER 2024-05-31 09:57 | Outpatient (CLI) | payer MEDICARE, SELFPAY ==
--- NOTE | ~2024-05-31 | XR_ITS ---
3 VIEWS LUMBAR SPINE Ordering provider: Arnulfo Moser MD History: . M54.50 - Low back pain, unspecified . Comparison: None. FINDINGS: VERTEBRAL BODIES: No visible fracture or subluxation. Degenerative changes of the spine. DISK SPACES: Mild narrowing of all the disc spaces. Multilevel facet joint disease. Right sacroiliitis. SOFT TISSUES: Normal. IMPRESSION: No acute osseous abnormality lumbar spine. Multilevel degenerative disc disease. Reviewed, dictated and finalized at location A. [facility]
== END 2024-05-31 09:58 | disposition home or self-care (01) ==
LOC: MICIMG 09:59
PROVIDERS: PCP Family Medicine; Visit Provider Family Medicine
DX: M51.369 Other intervertebral disc degeneration, lumbar region without mention of lumbar back pain or lower extremity pain (principal)
CPT/HCPCS: 72100

== ENCOUNTER 2024-05-31 10:31 | Outpatient (CLI) | payer MEDICARE, SELFPAY ==
--- OUTSIDE RECORDS SUMMARY | 2024-05-31 12:03 | XMS_ITS | Referral Summary ---
Author Organization [facility] Address [address] [place] [id number] Care Team Providers Care Space Control Supervisor Name Role Phone No, Physician Primary Care Provider [phone] Allergies Active Allergy Reactions Criticality Noted Date Comments Amoxicillin Dermatitis,Hives,Itc hin g,Swelling Medium 11/17/2006 Other reaction(s): sores in nose, sores in nose, Skin irritation (disorder) HIVES AND OPEN SORES TO NOSE AND GROIN AREA HIVES AND OPEN SORES TO NOSE AND GROIN AREA HIVES AND OPEN SORES TO NOSE AND GROIN AREA Other reaction(s): sores in nose, sores in nose, Skin irritation (disorder) HIVES AND OPEN SORES TO NOSE AND GROIN AREA Mouth/facial sores Clindamycin Diarrhea,Stomach upset Low 08/16/2018 Severe diarrhea Other reaction(s): GI upset 1extreme gastro upset x mos. extreme gastro upset x mos. 1extreme gastro upset x mos. 1extreme gastro upset x mos. Gabapentin Dizziness,Other (See comments) Low 08/05/2021 CAUSES DIZZINESS AND CONFUSION Other reaction(s): Other (See Comments) Other reaction(s): Dizziness CAUSES DIZZINESS AND CONFUSION CAUSES DIZZINESS AND CONFUSION Other reaction(s): Dizziness CAUSES DIZZINESS AND CONFUSION Medications albuterol HFA (PROVENTIL HFA,VENTOLIN HFA,PROAIR HFA) 90 mcg/actuation inhaler INHALE 2 PUFFS BY MOUTH EVERY 4 HOURS NEEDED FOR WHEEZING/COU GH 06/11/2021 Active cholestyramine (QUESTRAN) 4 gram packet 08/08/2022 Active metFORMIN (GLUCOPHAGE) 500 mg tablet 08/07/2022 Activ e multivitamin tablet Take by mouth Active meloxicam (MOBIC) 15 mg tablet Take 1 tablet (15 mg total) by mouth daily for 14 days 14 tablet 08/12/2022 Active pravastatin (PRAVACHOL) 20 mg tablet Take 1 tablet (20 mg total) by mouth nightly at bedtime 09/24/2023 Active Ozempic 0.25 mg or 0.5 mg (2 mg/3 mL) pen injector injection 10/10/2023 Active buPROPion XL (WELLBUTRIN XL) 150 mg 24 hr tablet Take 1 tablet (150 mg total) by mouth every morning 07/30/2023 Active Active Problems Problem Noted Date Diagnosed Date Cerebral ventriculomegaly 06/23/20222022 Elevated d-dimer 06/23/2022 08/12/2022 Diverticulitis 01/06/2022 08/12/2022 Exertional dyspnea 01/06/2022 08/12/2022 Fatigue 01/06/2022 08/12/2022 Mixed hyperlipidemia 01/06/2022 08/12/2022 Overview (08/12/2022): Description: Irritable bowel syndrome 01/06/2022 023 Mild intermittent asthma 01/06/2022 023 Moderate episode of recurrent major depressive d isorder 01/06/2022 08/12/2022 Non-toxic multinodular goiter 01/06/2022 Obesity 01/06/2022 08/12/2022 Overview (08/12/2022): This Problem was set by a rule ([facility]_EKS_BMI_PROB). This Problem was set by a rule ([facility]_EKS_BMI_PROB). Obstructive sleep apnea syndrome 01/06/2022 08/12/2022 Primary hypertension 01/06/2022 08/12/2022 Vitamin D deficiency 01/06/2022 08/12/2022 Seborrheic dermatitis 01/06/2022 08/12/2022 Seasonal allergic rhinitis 01/06/202208/12 Lumbar herniated disc 07/29/2021 08/12/2022 Overview (08/12/2022): Added automatically from request for surgery [id number] Type 2 diabetes mellitus 12/31/2019 023 Overview (08/12/2022): Description: Decreased range of motion (ROM) of shoulder 07/2708/12/2022 Overview (08/12/2022): Description: Neck pain 08/14/2019 08/12/2022 Overview (08/12/2022): Description: Primary osteoarthritis, right shoulder 0 08/12/2022 Overview (08/12/2022): Description: Description: Description: Description: Right shoulder pain 12/13/2016 08/12/2022 Overview (08/12/2022): Description: Overweight 08/08/2015 08/12/2022 Overview (08/12/2022): Description: Rheumatoid arthritis 01/25/2011 08/12/2022 Overview (08/12/2022): Description: Description: Social History Tobacco Use Types Packs/Day Years Used Date Smoking Tobacco: Never Smokeless Tobacco: Never Tobacco Cessation:Counseling Given: Not Answered Personal Safety Answer Date Recorded Getting School Help Needed Not on file 06/11 Sex and Gender Information Value Date Recorded Sex Assigned at Not on file Legal Sex Male 9:34 AM CDT Gender Identity Not on file Sexual Orientation Not on file Last Filed Vital Signs Vital Sign Reading Time Taken Comments Blood Pressure - - Pulse - - Temperature - - Respiratory Rate - - Oxygen Saturation - - Inhaled Oxygen Concentration - - Weight 108.9 kg (240 lb) 08/12/2022 2:01 PM CDT Height 185.4 cm (6' 1 ) 08/12/2022 2:01 PM CDT Body Mass Index 31.66 08/12/2022 2:01 PM CDT Plan of Treatment Not on file Insurance MEDICARE [facility] [facility] MEDICARE Care Teams Space Control Supervisor Relationship Specialty Start Date End Date No, Physician PCP - General 08/12/22
--- OUTSIDE RECORDS SUMMARY | 2024-05-31 12:03 | XMS_ITS | Encounter Summary ---
Author Organization [facility] Address [facility] [place] [address] Care Team Providers Care Telephone Answering Service Operator Name Role Phone Keith Worthy DO Primary Care Provider + Encounter Details Date Type Department Care Team (Late st Contact Info) Description 09/22/2022 MyChart Message Enc [facility] - [facility] [address] [place], [place] [id number] [facility] Provider Air Quality Message Social History Tobacco Use Types Packs/Day Years Used Date Smoking Tobacco: Never Smokeless Tobacco: Never Alcohol Use Standard Drinks/Week Comments Yes 0 (1 standard drink = 0.6 oz pur e alcohol) PHQ-2 Answer Date Recorded Patient Health Questionnaire-2 Score 0 08/24/2022 Sex and Gender Information Value Date Recorded Sex Assigned at Not on file Legal Sex Male 10:13 AM CDT Gender Identity Not on file Sexual Orientation Not on file COVID-19 Exposure Response Date Recorded In the last 10 days, have yo u been in contact with someone who was confirmed or suspected to have Coronavirus/COVID-19? No / Unsure 09/03/2022 8:42 AM CDT documented as of this encounter Plan of Treatment Not on file documented as of this encounter Visit Diagnoses Not on filedocumented in this encounter Care Teams Telephone Answering Service Operator Relationship Specialty Start Date End Date Keith Worthy DO [address] [place] [id number] PCP - General FAMILY PRACTICE 08/24/22 documented as of this encounter
--- OUTSIDE RECORDS SUMMARY | 2024-05-31 12:03 | XMS_ITS | Continuity of Care Document ---
Author Organization [facility] Address [address] [address] Phone Care Team Providers Care Tubing Drier Name Role Phone Abel Juarez OD Unavailable Unavailable Allergies, Adverse Reactions, Alerts Substance Reaction Status Criticality amoxicillin Hives Active No Information Medications Medication Instructions Dosage Effective Dates (start - stop) Status Comments multivitamin tablet take 1 by Oral route every day 1 - Active PROBIOTIC (unknown strength) Not Available - Active Procedures Procedure Date Determination Refractive State 16 [facility] Medical Xm&Eval Comprhnsv Estab Pt 1/> Vst Determination Refractive State 14 [facility] Medical Xm&Eval Compre New Pt 1/> Vst Advance Directives Directive Yes / No Effective Date File Name No Information Encounters Encounter Description Practice Location Reason(s) For Visit Diagnoses Date Provider Providers Copied on Encounter [facility], [address] [place] [address], [id number], [place] tel:[phone] [facility] No Information 6 Larry Roman. [address] [place] [address], [id number] . tel:[phone] Referring Provider: Able Meza, [address] [place] [address], [id number] . tel:[phone] [facility], [address] [place] [address], [id number], tel:[phone] [facility] routine exam (chief complaint) Hypermetropia, bilateralRegular astigmatism, bilateralPresbyop iaAge-related nuclear cataract, bilateral 6 aLrry Roman. [address] [place] [address], [address], [id number] . tel:[phone] Referring Provider: Abel Meza, [address] [place] [address], [id number] . tel:[phone] [facility], [address] [place] [address], [id number], tel:[phone] [facility] routine exam (chief complaint) HypermetropiaAsti gmatism, unspecifiedPresby opiaSenile nuclear sclerosisDermatoc halasis 4 Larry Roman. [address] [place] [address], [address], [id number] . tel:[phone] Referring Provider: Abel Meza, [address] [place] [address], [id number] . tel:[phone] Family History Family Member Type Diagnosis Age At Onset Problem (finding) Family history of catar act Problem (finding) Family history of hyper tension Problem (finding) Family history of Diabe sandi mellitus Problem (finding) Family history of Cance r, unknown Payers Payer name Insurance type Covered green party ID Authoriza tion(s) No Information Social [...] as it used to be; not much change . No H/A c/o. Some dryness, tearing and [...]
--- OUTSIDE RECORDS SUMMARY | 2024-05-31 12:03 | XMS_ITS | Clinical Summary ---
Author Organization [facility] Address [address] [place] [id number] Care Team Providers Care Mophead Trimmer And Wrapper Name Role Phone No, Physician Primary Care Provider [phone] Allergies Active Allergy Reactions Criticality Noted Date [...] This Problem was set by a rule ([facility]_EKS_BMI_PROB). This Problem was set by a rule ([facility]KS_BMI_PROB). Obstructive sleep apnea syndrome 01/06/2022 08/12/2022 Primary hypertension 01/06/2022 08/12/2022 Vitamin D deficiency 01/06/2022 08/12/2022 Seborrheic dermatitis 01/06/2022 08/12/2022 Seasonal allergic rhinitis 01/06/202208/12 Lumbar herniated disc 07/29/2021 08/12/2022 Overview (08/12/2022): Added automatically from request for surgery [id number] Type 2 diabetes mellitus 12/31/2019 023 Overview (08/12/2022): Description: Decreased range of motion (ROM) of shoulder 07/2708/12/2022 Overview (08/12/2022): Description: Neck pain 08/14/2019 08/12/2022 Overview (08/12/2022): Description: Primary osteoarthritis, right shoulder 0 08/12/2022 Overview (08/12/2022): Description: Description: Description: Description: Right shoulder pain 12/13/2016 08/12/2022 Overview (08/12/2022): Description: Overweight 08/08/2015 08/12/2022 Overview (08/12/2022): Description: Rheumatoid arthritis 01/25/2011 08/12/2022 Overview (08/12/2022): Description: Description: Surgical History Surgery Date Site/Laterality Comments CARPAL TUNNEL RELEASE Bilateral FOOT SURGERY SHOULDER SURGERY 03/28/2021 - 03/27/2022 Medical History Medical History Date Comments Diabetes mellitus (HCC) Family History Medical History Relation Name Comments Alcohol abuse Brother Arthritis Father Arthritis Mother Cancer Mother Diabetes Mother Stroke Mother Alcohol abuse Sister Depression Sister Relation Name Status Comments Brother Father Mother Sister Social History Tobacco Use Types Packs/Day Years Used Date Smoking Tobacco: Never Smokeless Tobacco: Never Tobacco Cessation:Counseling Given: Not Answered Personal Safety Answer Date Recorded Getting School Help Needed Not on file 06/11 Sex and Gender Information Value Date Recorded Sex Assigned at Not on file Legal Sex Male 9:34 AM CDT Gender Identity Not on file Sexual Orientation Not on file Obstetrics History Last Filed Vital Signs Vital Sign Reading Time Taken Comments Blood Pressure - - Pulse - - Temperature - - Respiratory Rate - - Oxygen Saturation - - Inhaled Oxygen Concentration - - Weight 108.9 kg (240 lb) 08/12/2022 2:01 PM CDT Height 185.4 cm (6' 1 ) 08/12/2022 2:01 PM CDT Body Mass Index 31.66 08/12/2022 2:01 PM CDT Plan of Treatment Health Maintenance Due Date Last Done Comments Albumin Creatinine Ratio, Urine 1954 Colon Cancer Screening-Colonoscopy 1954 Depression Screening 1954 Fall Risk Assessment 1954 Hemoglobin A1C 1954 Hepatitis C Screening 1955 eGFR 1955 Dilated Eye Exam 1954 Foot Exam 1954 Hepatitis B Screening 1972 Well Visit 65+ 2019 DTaP/Tdap/Td Vaccine (2 - Td or Tdap) 03/02/2020 03/02/2010 Lipid Panel 09/04/2023 09/03/2022, 08/16/2018 Covid-19 Vaccine (5 - 2023-2 5 season) 2023 01/22/2021, 06/26/2020, 06/07/2020, Additional history exists Influenza Vaccine (#1) 2023 3, 12/26/2021, 12/09/2020, Additional history exists Zoster Vaccine Completed 04/06/2019, 11/18/2018 Pneumococcal vaccine 65+ Completed 022, 06/12/2019, 01/30/2016, Additional history exists Insurance MEDICARE [facility] MEDICARE Care Teams Mophead Trimmer And Wrapper Relationship Specialty Start Date End Date No, Physician PCP - General 08/12/22
--- OUTSIDE RECORDS SUMMARY | 2024-05-31 12:03 | XMS_ITS | Clinical Summary ---
Author Organization [facility] Address [address] [place] [id number] Care Team Providers Care Community Action Worker Name Role Phone Keith Worthy DO Primary Care Provider + Allergies Active Allergy Reactions Criticality Noted Date Comments Amoxicillin Atopic Dermatitis,Rash,Itching ,Swelling Medium 11/17/2006 Other reaction(s): sores in nose, sores in nose, Skin irritation (disorder) HIVES AND OPEN SORES TO NOSE AND GROIN AREA HIVES AND OPEN SORES TO NOSE AND GROIN AREA HIVES AND OPEN SORES TO NOSE AND GROIN AREA Other reaction(s): sores in nose, sores in nose, Skin irritation (disorder) HIVES AND OPEN SORES TO NOSE AND GROIN AREA Mouth/facial sores HIVES AND OPEN SORES TO NOSE AND GROIN AREA Other reaction(s): sores in nose, sores in nose, Skin irritation (disorder) HIVES AND OPEN SORES TO NOSE AND GROIN AREA HIVES AND OPEN SORES TO NOSE AND GROIN AREA Other reaction(s): sores in nose, sores in nose, Skin irritation (disorder) HIVES AND OPEN SORES TO NOSE AND GROIN AREA Mouth/facial sores Clindamycin Diarrhea,GI Upset 08/16/2018 Severe diarrhea Other reaction(s): GI upset 1extreme gastro upset x mos. extreme gastro upset x mos. 1extreme gastro upset x mos. 1extreme gastro upset x mos. Gabapentin Dizziness,Other (see comment) 08/05/2021 CAUSES DIZZINESS AND CONFUSION Other reaction(s): Other (See Comments) Other reaction(s): Dizziness CAUSES DIZZINESS AND CONFUSION CAUSES DIZZINESS AND CONFUSION Other reaction(s): Dizziness CAUSES DIZZINESS AND CONFUSION Medications Multiple Vitamin (MULTI-VITAMIN) tablet Take by mouth Active albuterol sulfate HFA 108 (90 Base) MCG/ACT inhaler Inhale 2 puffs into the lungs every 6 (six) hours as needed. 2 Active cholestyramine (QUESTRAN) 4 G packet Take 1 packet (4 g total) by mouth 2 (two) times daily with meals. As needed 3 Active metFORMIN (GLUCOPHAGE) 500 MG tabletIndications:T ype 2 diabetes mellitus ([facility]) TAKE 2 TABLETS TWICE A DAY WITH MEALS. 360 tablet 1 3 Active pravastatin (PRAVACHOL) 10 MG tabletIndications:H yperlipidemia, unspecified hyperlipidemia type Take 1 tablet (10 mg total) by mouth daily. 30 tablet 2 3 Active Telmisartan 80 MG TabIndications:Prim anjali hypertension Take 1 tablet by mouth daily. Patient must be seen for further refills 30 tablet 3 Active Active Problems Problem Noted Date Diagnosed Date Hyperlipidemia, unspecified hyperlipidemia type 08/24/2022 Irritable bowel syndrome 01/06/2022 Mild intermittent asthma ([facility]) 01/06/2022 Obstructive sleep apnea syndrome 01/06/2022 Primary hypertension 01/06/2022 Seasonal allergic rhinitis 01/06/2022 Vitamin D deficiency 01/06/2022 Type 2 diabetes mellitus ([facility]) 12/30 Overview (08/24/2022): Description: Description: Rheumatoid arthritis ([facility]) 1 Overview (08/24/2022): Description: Description: Description: Description: Resolved Problems Problem Noted Date Diagnosed Date Resolved Date Pre-syncope 06/23/2022 08/24/2022 Diverticulitis 01/06/2022 08/24/2022 Moderate episode of recurren t major depressive disorder ([facility]) 01/06/2022 Non-toxic multinodular goiter 01/06/2022 08/24/2022 Seborrheic dermatitis 01/06/20222022 Lumbar herniated disc 07/29/20212022 Overview (08/24/2022): Added automatically from request for surgery [id number] Added automatically from request for surgery [id number] Neck pain 08/14/2019 08/24/2022 Overview (08/24/2022): Description: Description: Primary osteoarthritis, right shoulder 08/14/2019 08/24/2022 Overview (08/24/2022): Description: Description: Description: Description: Description: Description: Description: Description: Immunizations Name Administration Dates Next Due Influenza Adult (Generic) 12/09/2020,,11/13/2018,2017,12/14/2016,01/05/2016,01/02/2015,1 ,04/22/2011 MODERNA COVID-19 (12+) MRNA, LNP-S, PF, 100 MCG/ 0.5 ML DOSE 01/22/2021,06/26/2020,06/07/2020,2020 Pneumococcal (Generic) 01/30/2016 Pneumococcal (Pneumovax 23) 06/12/2019 Pneumococcal (Prevnar 20) 01/15/2022 Shingrix 04/06/2019,11/13/2018 Tdap (Generic) 03/02/2010 Social History Tobacco Use Types Packs/Day Years Used Date Smoking Tobacco: Never Smokeless Tobacco: Never Tobacco Cessation:Counseling Given: No Alcohol Use Standard Drinks/Week Comments Yes 0 [...] Sign Reading Time Taken Comments Blood Pressure 134/70 08/24/2022 1:16 PM CDT Pulse 70 08/24/2022 1:16 PM CDT Temperature 35.8 C (96.5 F) 08/24/2022 1:16 PM CDT Respiratory Rate 16 08/24/2022 1:16 PM CDT Oxygen Saturation 96% 08/24/2022 1:16 PM CDT Inhaled Oxygen Concentration - - Weight 114.8 kg (253 lb) 08/24/2022 1:16 PM CDT Height 185.4 cm (6' 1 ) 08/24/2022 1:16 PM CDT Body Mass Index 33.38 08/24/2022 1:16 PM CDT Plan of Treatment Health Maintenance Due Date Last Done Comments Colorectal Cancer Screening Colonoscopy (10 Years) 1954 Kidney Health Evaluation 1954 Diabetes: Retinopathy Eye Exam 1972 RSV Immunization or 60+ Years (1 - Risk 60-74 years 1-dose series) 2014 Annual Medicare Wellness Visit 2019 DTaP, Tdap and Td Vaccines (2 - Td or Tdap) 03/02/2020 03/02/2010 Hemoglobin A1C 02/24/2023 08/24/2022, 0311/2022, 06/23/2022, Additional history exists PHQ-2 (Physician [place]) 08/25/2023 08/24/2022 Lipid Panel 09/04/2023 09/03/2022 COVID-19 Vaccine ( season) 2023 12/25/2021, 01/22/2021, 06/26/2020, Additional history exists Influenza Adult (#1) 2023 12/09/2020, 12/13/2019, 11/13/2018, Additional history exists PHQ-2 (Physician [place]) 03/28/2024 08/24/2022 Zoster Vaccines Completed 04/06/2019, 11/13/2018 Pneumococcal Vaccine: 65+ Years Completed 01/15/2022, 06/12/2019 Hepatitis C Completed 09/03/2022 Meningococcal B Vaccine Aged Out No l onger eligible based on patient's age to complete this topic Meningococcal Vaccine Aged Out No lisa joanie eligible based on patient's age to complete this topic RSV Immunizations Under 20 Months Aged Out No longer eligible based on patient's age to complete this topic Procedures Procedure Name Priority Date/Time Associated Diagnosis Comments HEPATITIS C ANTIBODY Routine 09/03/2022 9:09 AM CDT Type 2 diabetes mellitus with other circulatory complication, without long-term current use of insulin ([facility]) Primary hypertension Hyperlipidemia, unspecified hyperlipidemia type Vitamin D deficiency Rheumatoid arthritis, involving unspecified site, unspecified whether rheumatoid factor present ([facility]) Need for hepatitis C screening test LIPID PANEL Routine 09/03/2022 9:09 AM CDT Type 2 diabetes mellitus with other circulatory complication, without long-term current use of insulin ([facility]) Primary hypertension Hyperlipidemia, unspecified hyperlipidemia type Vitamin D deficiency Rheumatoid arthritis, involving unspecified site, unspecified whether rheumatoid factor present ([facility]) HEMOGLOBIN, GLYCOSYLATED Routine 08/24/2022 Type 2 diabetes mellitus with other circulatory complication, without long-term current use of insulin ([facility]) from Last 3 Months or Most Recently Relevant to Health Maintenance Results * (ABNORMAL) LIPID PANEL (09/03/2022 9:09 AM CDT) Pathologist [facility] CHOLESTEROL 178 <200 MG/DL 09/03/2022 3:23 PM CDT [facility] TRIGLYCERIDES 216(H) <150 MG/DL 09/03/2022 3:23 PM CDT [facility] HDL 35(L) >40 MG/DL 09/03/2022 3:23 PM CDT [facility] LDL-C 100(H) <100 MG/DL 09/03/2022 3:23 PM CDT [facility] VLDL CALCULATION 43(H) 5 - 28 MG/DL 09/03/2022 3:23 PM CDT [facility] CHOL/HDL RATIO 5.1(H) 0.0 - 4.0 09/03/2022 3:23 PM CDT [facility] LDL/HDL 2.9(H) 0.41 - 2.13 09/03/2022 3:23 PM CDT [facility] NON HDL CHOLESTEROL 143(H) <140 MG/DL 09/03/2022 3:23 PM CDT [facility] 09/03/2022 9:09 AM CDT Keith Worthy DO LABORATORY Final Re sult [facility] [address] [place] [address], * HEPATITIS C ANTIBODY (09/03/2022 9:09 AM CDT) Pathologist [facility] HEPATITIS C AB NON-REACTI VE NON-REACT HIMANSHU 09/03/2022 7:50 PM CDT [facility] Comment: ANTIBODIES TO HCV NOT DETECTED. DOES NOT EXCLUDE THE POSSIBILITY OF EXPOSURE TO HCV. 09/03/2022 9:09 AM CDT us Keith Worthy DO LABORATORY Final Re sult [facility] [address] [place] [address], [place] [phone] [id number] * A1C (BACK OFFICE) (08/24/2022) HGB A1C 7.4 % [facility] 08/24/2022 us Keith Worthy DO LABORATORY Final Re sult Performing Organization Address [facility] Co de Phone Number [facility] [address] [place] [address], [place] from Last 3 Months or Most Recently Relevant to Health Maintenance Insurance MEDICARE [facility] Care Teams Community Action Worker Relationship Specialty Start Date End Date Keith Worthy DO [facility] [place] [address] PCP - General FAMILY PRACTICE 08/24/22
--- OUTSIDE RECORDS SUMMARY | 2024-05-31 12:03 | XMS_ITS | Continuity of Care Document ---
Author Organization [facility] Address [address] [place] [address] Phone Care Team Providers Care Income Tax Investigator Name Role Phone Laura SUERO Rom Unavailable [...] spasms 750 MG - No Longer Active Marlborough 7.5 mg-325 mg tablet take 1 tablet by oral route every 6 hours as needed for pain - No Longer Active Aleve 220 mg tablet take 1 tablet by oral route every 12 hours as needed 220 MG - No Longer Active multivitamin tablet - No Longer Active Procedures Procedure Date J-Ldo-eghesvpm/2 Views New Patient-comprehensive A-Ogd-yrlhulqe/2 Views Office/outpatient visit, est, prob foc J K-Esy-oxiidami/2 Views Post-op Exam SX PRE PAY Arthrodesis [...] Providers Copied on Encounter New Patient-comp rehensive [facility], [address] [place] [address], [id number], tel:[phone] [facility] Office neck pain (chief complaint) Radiculopathy , cervical regionArthrod esis statusBody mass index (BMI) 32.0-32.9, adult 1 Laura Cueto. [address] [place] [address], [id number], . tel:[phone] Referring Provider: Rom SUERO, [address] [place] [address], [id number] . tel:[phone] Office/outpa tient visit, est, prob foc [facility], [address] [place] [address], [id number], tel:[phone] [facility] Office neck pain (chief complaint) Radiculopathy , cervical regionElevate d blood-pressur e reading, w/o diagnosis of htnBody mass index (BMI) 32.0-32.9, adultCervical disc disorder at C5-C6 level with radiculopathy 7 Almita Montes De Oca. [address] [place] [address], [id number], . tel:[phone] Referring Provider: Tavon Recio MD, [address] [place] [address], [id number] . tel:[phone] [facility], [address] [place] [address], [id number], tel:[phone] [facility] Office Radiculopathy , cervical region 7 Almita Montes De Oca. [address] [place] [address], [id number], [place]. tel:[phone] [facility], [address] [place] [address], [id number], [place] tel:[phone] [facility] Office neck pain (chief complaint) Cervical disc disorder at C6-C7 level with radiculopathy Cervical disc disorder at C5-C6 level with radiculopathy Radiculopathy , cervical region 7 Terrance Arredondo. [address] [place] [address], [id number], [place]. tel:[phone] [facility], [address] [place] [address], [id number], [place] tel:[phone] [facility] Office Cervical disc disorder at C6-C7 level with radiculopathy 7 Almita Montes De Oca. [address] [place] [address], [id number], [place]. tel:[phone] [facility], [address] [place] [address], [id number], [place] tel:[phone] [facility] No Information 7 Almita Montes De Oca. [address] [place] [address], [id number], [place]. tel:[phone] [facility], [address] [place] [address], [id number], tel:[phone] [facility] No Information 7 Almita Montes De Oca. [address] [place] [address], [id number], [place]. tel:[phone] Referring Provider: Tavon Recio MD, [address] [place] [address], [id number] . tel:[phone] Established Patient-comp rehensive [facility], [address] [place] [address], [id number], [place] tel:[phone] [facility] Office neck pain (chief complaint) Cervical disc disorder at C5-C6 level with radiculopathy Cervical disc disorder at C6-C7 level with radiculopathy 6 Almita Montes De Oca. [address] [place] [address], [id number], [place]. tel:[phone] [facility], [address] [place] [address], [id number], [place] tel:[phone] [facility] Office Radiculopathy , cervical region 6 Almita Montes De Oca. [address] [place] [address], [id number], [place]. tel:[phone] Referring Provider: Arnulfo SUERO, [address] [place] [address], [id number] . tel:[phone] Established Patient-expa nded [facility], [address] [place] [address], [id number], [place] tel:[phone] [facility] Office neck pain (chief complaint) Cervical stenosis of spineCervical radiculopathy 6 Terrance Arredondo. [address] [place] [address], [id number], [place]. tel:[phone] [facility], [address] [place] [address], [id number], [place] tel:[phone] [facility] Office lumbar spine (chief complaint) L-spine spondylosis Sep-2 4 Rodríguez DPT Rolanda. [address] [place] [address], [id number], . tel:[phone] Referring Provider: Tavon Recio MD, [address] [place] [address], [id number] . tel:[phone] Office/op Consult-deta manas [facility], [address] [place] [address], [id number], tel:[phone] [facility] Office back pain (chief complaint) L-spine spondylosis 4 Almita Mnotes De Oca. [address] [place] [address], [id number], [place]. tel:[phone] Established Patient-comp rehensive [facility], [address] [place] [address], [address] [place] [address], tel:[phone] [phone] [place] [address] Office No Information 7 Almita Montes De Oca. [address] [place] [address], [id number], . tel:[phone] [facility], [address] [place] [address], [id number], tel:[phone] [facility] Office No Information 5 Jessika Vásquez. [address] [place] [address], [id number], . Family History Family Member Type Diagnosis Age At Onset Problem (finding) Family history of Diabe sandi mellitus Payers Payer name Insurance type Covered alliance party ID Authoriza tion(s) Medicare [facility] GBA MB [id number] BCBS OOS BL [id number] [facility] [id number] Social History Type Description Quantity Date Captured Comments Alcohol Use Details Unknown Caffeine Use Details Unknown Tobacco Use Status Never smoked tobacco 2020 Smoking Status Never smoker Non-Smoking Tobacco Use Details : No Details Available : No Details Available Sex Male Vital Signs Date / Time: Height Weight [...] shoulder hemiarthroplastyin March of this year through [facility] who presents as a new patient [...] discectomy and fusion by Dr. Recio in 2017 as well as right shoulder hemiarthroplasty in March of this year through [facility] who presents as a new patient [...] and gait dysfunction. The patient has tried Marlborough 7.5-325mg and Robaxin 750mg for pain relief. 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 neck pain [...] He has decreased range of motion with cxzl-ao-vdsa head turning as well as looking up. [...] Score 3/10 Instructions Date Instruction Additional Infor gillion Giving encouragement to exercise Related to Body mass index (BMI) 32.0-32.9, adult Hypertension education Related t o Elevated blood-pressure reading, without diagnosis of hypertension Assessments Type Assessment Date assessment Radiculopathy, cervical region M assessment Arthrodesis status assessment Body mass index (BMI) 32.0-32.9, adult Patient Care Teams Name Effective Dates (start - stop) Status Members No Information
[2024-05-31 12:38] LABS: Basophils Percent Auto 0.7 % (0.2-1.2); Eosinophils Absolute Auto 0.1 K/mm3 (0-0.3); Eosinophils Percent Auto 2.1 % (0-4.4); Hemoglobin 14.4 g/dL (14.0-18.0); Immature Granulocyte Absolute 0.01 K/mm3 (0.00-0.031); Immature Granulocyte Percent A 0.2 % (0-0.5); Lymphocytes Absolute Auto 1.65 K/mm3 (0.9-3.2); Lymphocytes Percent Auto 28.6 % (18.3-44.2); Mean Corpuscular HGB Conc 32.7 g/dl (32-36); Mean Corpuscular Hemoglobin 30.3 pg (26-34); Mean Corpuscular Volume 92.4 fl (80-100); Mean Platelet Volume 11.3 fl (7.4-10.4); Monocytes Absolute Auto 0.5 K/mm3 (0.1-0.6); Monocytes Percent Auto 7.8 % (2.6-8.5); Neutrophils Absolute Auto 3.5 K/mm3 (1.3-6.7); Neutrophils Percent Auto 60.6 % (45.5-73.1); Platelet Count Result 184 k/mm3 (150-375); Red Blood Count 4.76 M/mm3 (4.6-6.20); Red Cell Distribution Width 12.8 % (11.5-14.5); White Blood Count 5.8 K/mm3 (4.5-10.0)
[2024-05-31 13:54] LABS: Alanine Aminotransferase 25 U/L (6-50); Albumin Level 4.9 g/dL (3.5-5.1); Alkaline Phosphatase 56 U/L (38-126); Anion Gap 11 mmol/L (4-12); Aspartate Amino Transferase 43 U/L (17-59); Bilirubin,Total 0.9 mg/dL (0.2-1.3); Blood Urea Nitrogen 19 mg/dL (9-20); Calcium 9.6 mg/dL (8.4-10.2); Carbon Dioxide 27 mmol/L (22-30); Chloride 100 mmol/L (98-107); Estimated Glomerular Filt Rate > 60; Glucose 113 mg/dL (65-110); Potassium 5.3 mmol/L (3.4-5.0); Sodium 138 mmol/L (137-145)
[2024-05-31 15:36] LABS: Hemoglobin A1C 6.5 % (<5.7)
== END 2024-05-31 10:32 | disposition home or self-care (01) ==
LOC: ANHGOSHLAB 10:32
PROVIDERS: PCP Family Medicine; Visit Provider Family Medicine
DX: E11.9 Type 2 diabetes mellitus without complications (principal)
CPT/HCPCS: 36415; 80053; 83036; 85025

== ENCOUNTER 2024-06-01 09:10 | Outpatient (NON) | payer MEDICARE, SELFPAY ==
--- OUTSIDE RECORDS SUMMARY | 2024-06-01 09:36 | XMS_ITS | Clinical Summary ---
Author Organization [facility] Address [address] [place] [address] Care Team Providers Care Revenue Agent Name Role Phone Keith Worthy DO Primary [...] 500 MG tabletIndications:T ype 2 diabetes mellitus ([facility]) TAKE 2 TABLETS TWICE A DAY WITH [...] Irritable bowel syndrome 01/06/2022 Mild intermittent asthma ([facility]) 01/06/2022 Obstructive sleep apnea syndrome 01/06/2022 Primary hypertension 01/06/2022 Seasonal allergic rhinitis 01/06/2022 Vitamin D deficiency 01/06/2022 Type 2 diabetes mellitus ([facility]) 12/30 Overview (08/24/2022): Description: Description: Rheumatoid arthritis ([facility]) 1 Overview (08/24/2022): Description: Description: Description: Description: Resolved Problems Problem Noted Date Diagnosed Date Resolved Date Pre-syncope 06/23/2022 08/24/2022 Diverticulitis 01/06/2022 08/24/2022 Moderate episode of recurren t major depressive disorder ([facility]) 01/06/2022 Non-toxic multinodular goiter 01/06/2022 08/24/2022 Seborrheic dermatitis 01/06/20222022 Lumbar herniated disc 07/29/20212022 Overview (08/24/2022): Added automatically from request for surgery [id number] Added automatically from request for surgery [id number] Neck pain 08/14/2019 08/24/2022 Overview (08/24/2022): Description: [...] 0311/2022, 06/23/2022, Additional history exists PHQ-2 ([facility] [place]) 08/25/2023 08/24/2022 Lipid Panel 09/04/2023 09/03/2022 COVID-19 Vaccine ( season) 2023 12/25/2021, 01/22/2021, 06/26/2020, Additional history exists Influenza Adult (#1) 2023 12/09/2020, 12/13/2019, 11/13/2018, Additional history exists PHQ-2 ([facility] [place]) 03/28/2024 08/24/2022 Zoster Vaccines Completed 04/06/2019, 11/13/2018 [...] complication, without long-term current use of insulin ([facility]) Primary hypertension Hyperlipidemia, unspecified hyperlipidemia type Vitamin D deficiency Rheumatoid arthritis, involving unspecified site, unspecified whether rheumatoid factor present ([facility]) Need for hepatitis C screening test LIPID PANEL Routine 09/03/2022 9:09 AM CDT Type 2 diabetes mellitus with other circulatory complication, without long-term current use of insulin ([facility]) Primary hypertension Hyperlipidemia, unspecified hyperlipidemia type Vitamin D deficiency Rheumatoid arthritis, involving unspecified site, unspecified whether rheumatoid factor present ([facility]) HEMOGLOBIN, GLYCOSYLATED Routine 08/24/2022 Type 2 diabetes mellitus with other circulatory complication, without long-term current use of insulin ([facility]) from Last 3 Months or Most Recently Relevant to Health Maintenance Results * (ABNORMAL) LIPID PANEL (09/03/2022 9:09 AM CDT) Pathologist [facility] CHOLESTEROL 178 <200 MG/DL 09/03/2022 3:23 PM CDT [facility] TRIGLYCERIDES 216(H) <150 MG/DL 09/03/2022 3:23 PM CDT [facility] HDL 35(L) >40 MG/DL 09/03/2022 3:23 PM CDT [facility] LDL-C 100(H) <100 MG/DL 09/03/2022 3:23 PM CDT [facility] VLDL CALCULATION 43(H) 5 - 28 MG/DL 09/03/2022 3:23 PM CDT [facility] CHOL/HDL RATIO 5.1(H) 0.0 - 4.0 09/03/2022 3:23 PM CDT [facility] LDL/HDL 2.9(H) 0.41 - 2.13 09/03/2022 3:23 PM CDT [facility] NON HDL CHOLESTEROL 143(H) <140 MG/DL 09/03/2022 3:23 PM CDT [facility] 09/03/2022 9:09 AM CDT Keith Worthy DO LABORATORY Final Re sult [facility] [address] [place] [address], * HEPATITIS C ANTIBODY (09/03/2022 9:09 AM CDT) Pathologist [facility] HEPATITIS C AB NON-REACTI VE NON-REACT HIMANSHU 09/03/2022 7:50 PM CDT [facility] Comment: ANTIBODIES TO HCV NOT DETECTED. DOES NOT EXCLUDE THE POSSIBILITY OF EXPOSURE TO HCV. 09/03/2022 9:09 AM CDT us Keith Worthy DO LABORATORY Final Re sult [facility] [address] [place] [address], [place] [phone] * A1C (BACK OFFICE) (08/24/2022) HGB A1C 7.4 % [facility] 08/24/2022 us Keith Worthy DO LABORATORY Final Re sult Performing Organization Address [facility] Co de Phone Number [facility] [address] [place] [address], [place] from Last 3 Months or Most Recently Relevant to Health Maintenance Insurance MEDICARE [facility] Care Teams Revenue Agent Relationship Specialty Start Date End Date Keith Worthy DO [facility] [place] [address] PCP - General FAMILY PRACTICE 08/24/22
--- OUTSIDE RECORDS SUMMARY | 2024-06-01 09:36 | XMS_ITS | Continuity of Care Document ---
Author Organization [facility] Address [address] [place] [address] Phone Care Team Providers Care Apprenticeship Representative Name Role Phone Laura SUERO Rom Blanche Unavailab le Allergies, Adverse Reactions, Alerts Substance Reaction Status Criticality clindamycin GI Symptoms Active No Information AMOXICILLIN TRIHYDRATE Active No In formation Medications Medication Instructions Dosage Effective Dates (start - stop) Status Comments TELMISARTAN (unknown strength) take 1 tablet by oral route every day Not Available - Active metformin (unknown strength) Not Available - Active PRAVASTATIN SODIUM (unknown strength) Not Available - Active potassium 99 mg tablet - Active Robaxin-750 750 mg tablet take 1 tablet by ORAL route every 8 hours prn spasms 750 MG - No Longer Active [place] 7.5 mg-325 mg tablet take 1 tablet by oral route every 6 hours as needed for pain - No Longer Active Aleve 220 mg tablet take 1 tablet by oral route every 12 hours as needed 220 MG - No Longer Active multivitamin tablet - No Longer Active Procedures Procedure Date I-Hjz-sicpmqmn/2 Views New Patient-comprehensive I-Sxr-arphmcqb/2 Views Office/outpatient visit, est, prob foc J K-Ecc-rueqpvsd/2 Views Post-op Exam SX PRE PAY Arthrodesis [...] Providers Copied on Encounter New Patient-comp rehensive [facility], [address] [place] [address], [id number], tel:[phone] [facility] Office neck pain (chief complaint) Radiculopathy , cervical regionArthrod esis statusBody mass index (BMI) 32.0-32.9, adult 1 Laura Cueto. [address] [place] [address], [id number], . tel:[phone] Referring Provider: Rom SUERO, [address] [place] [address], [id number] . tel:[phone] Office/outpa tient visit, est, prob foc [facility], [address] [place] [address], [id number], tel:[phone] [facility] Office neck pain (chief complaint) Radiculopathy , cervical regionElevate d blood-pressur e reading, w/o diagnosis of htnBody mass index (BMI) 32.0-32.9, adultCervical disc disorder at C5-C6 level with radiculopathy 7 Almita Montes De Oca. [address] [place] [address], [id number], . tel:[phone] Referring Provider: Tavon Recio MD, [address] [place] [address], [id number] . tel:[phone] [facility], [address] [place] [address], [id number], tel:[phone] [facility] Office Radiculopathy , cervical region 7 Almita Montes De Oca. [address] [place] [address], [id number], [place]. tel:[phone] [facility], [address] [place] [address], [id number], [place] tel:[phone] [facility] Office neck pain (chief complaint) Cervical disc disorder at C6-C7 level with radiculopathy Cervical disc disorder at C5-C6 level with radiculopathy Radiculopathy , cervical region 7 Terrance Arredondo. [address] [place] [address], [id number], [place]. tel:[phone] [facility], [address] [place] [address], [id number], [place] tel:[phone] [facility] Office Cervical disc disorder at C6-C7 level with radiculopathy 7 Almita Montes De Oca. [address] [place] [address], [id number], [place]. tel:[phone] [facility], [address] [place] [address], [id number], [place] tel:[phone] [facility] No Information 7 Almita Montes De Oca. [address] [place] [address], [id number], [place]. tel:[phone] [facility], [address] [place] [address], [id number], tel:[phone] [facility] No Information 7 Almita Montes De Oca. [address] [place] [address], [id number], [place]. tel:[phone] Referring Provider: Tavon Recio MD, [address] [place] [address], [id number] . tel:[phone] Established Patient-comp rehensive [facility], [address] [place] [address], [id number], [place] tel:[phone] [facility] Office neck pain (chief complaint) Cervical disc disorder at C5-C6 level with radiculopathy Cervical disc disorder at C6-C7 level with radiculopathy 6 Almita Montes De Oca. [address] [place] [address], [id number], [place]. tel:[phone] [facility], [address] [place] [address], [id number], [place] tel:[phone] [facility] Office Radiculopathy , cervical region 6 Almita Montes De Oca. [address] [place] [address], [id number], [place]. tel:[phone] Referring Provider: Arnulfo SUERO, [address] [place] [address], [id number] . tel:[phone] Established Patient-expa nded [facility], [address] [place] [address], [id number], [place] tel:[phone] [facility] Office neck pain (chief complaint) Cervical stenosis of spineCervical radiculopathy 6 Terrance Arredondo. [address] [place] [address], [id number], [place]. tel:[phone] [facility], [address] [place] [address], [id number], [place] tel:[phone] [facility] Office lumbar spine (chief complaint) L-spine spondylosis Sep-2 4 Rodríguez DPT Rolanda. [address] [place] [address], [id number], . tel:[phone] Referring Provider: Tavon Recio MD, [address] [place] [address], [id number] . tel:[phone] Office/op Consult-deta manas [facility], [address] [place] [address], [id number], tel:[phone] [facility] Office back pain (chief complaint) L-spine spondylosis 4 Almita Montes De Oca. [address] [place] [address], [id number], [place]. tel:[phone] Established Patient-comp rehensive [facility], [address] [place] [address], [address] [place] [address], tel:[phone] [address] [place] [address] Office No Information 7 Almita Montes De Oca. [address] [place] [place] [address], [id number], . tel:[phone] [facility], [address] [place] [address], [id number], tel:[phone] [facility] Office No Information 5 Jessika Vásquez. [address] [place] [address], [id number], . Family History Family Member Type Diagnosis Age At Onset Problem (finding) Family history of Diabe sandi mellitus Payers Payer name Insurance type Covered libertarian ID Authoriza tion(s) Medicare [facility] GBA MB [id number] BCBS OOS BL [id number] [facility] [id number] Social History Type Description Quantity Date Captured [...] shoulder hemiarthroplastyin March of this year through [facility] who presents as a new patient today [...] hemiarthroplasty in March of this year through [facility] who presents as a new patient today [...] and gait dysfunction. The patient has tried [place] 7.5-325mg and Robaxin 750mg for pain relief. 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 neck pain [...] He has decreased range of motion with bfhk-rv-ekun head turning as well as looking up. [...]
--- OUTSIDE RECORDS SUMMARY | 2024-06-01 09:36 | XMS_ITS | Referral Summary ---
Author Organization [facility] Address [address] [place] [address] Care Team Providers Care Wire Coiner Name Role Phone No, Physician Primary Care Provider [phone] Allergies Active Allergy Reactions Criticality Noted Date [...] This Problem was set by a rule ([facility]_EKS_BMI_PROB). This Problem was set by a rule ([facility]_EKS_BMI_PROB). Obstructive sleep apnea syndrome 01/06/2022 08/12/2022 Primary hypertension 01/06/2022 08/12/2022 Vitamin D deficiency 01/06/2022 08/12/2022 Seborrheic dermatitis 01/06/2022 08/12/2022 Seasonal allergic rhinitis 01/06/202208/12 Lumbar herniated disc 07/29/2021 08/12/2022 Overview (08/12/2022): Added automatically from request for surgery [id number] Type 2 diabetes mellitus 12/31/2019 023 Overview [...] of Treatment Not on file Insurance MEDICARE [facility] [facility] MEDICARE Care Teams Wire Coiner Relationship Specialty Start Date End Date No, Physician PCP - General 08/12/22
--- OUTSIDE RECORDS SUMMARY | 2024-06-01 09:36 | XMS_ITS | Continuity of Care Document ---
Author Organization [facility] Address [address] [address] Phone Care Team Providers Care Family Manager Name Role Phone Abel Juarez OD Unavailable Unavailable Allergies, Adverse Reactions, Alerts Substance Reaction Status Criticality amoxicillin Hives Active No Information Medications Medication Instructions Dosage Effective Dates (start - stop) Status Comments multivitamin tablet take 1 by Oral route every day 1 - Active PROBIOTIC (unknown strength) Not Available - Active Procedures Procedure Date Determination Refractive State 16 [facility] Medical Xm&Eval Comprhnsv Estab Pt 1/> Vst Determination Refractive State 14 [facility] Medical Xm&Eval Compre New Pt 1/> Vst Advance Directives Directive Yes / No Effective Date File Name No Information Encounters Encounter Description Practice Location Reason(s) For Visit Diagnoses Date Provider Providers Copied on Encounter [facility], [address] [place] [address], [id number], [place] tel:[phone] [facility] No Information 6 Larry Roman. [address] [place] [address], [id number] . tel:[phone] Referring Provider: Abel Meza, [address] [place] [address], [id number] . tel:[phone] [facility], [address] [place] [address], [id number], tel:[phone] [facility] routine exam (chief complaint) Hypermetropia, bilateralRegular astigmatism, bilateralPresbyop iaAge-related nuclear cataract, bilateral 6 Larry Roman. [address] [place] [address], [address], [id number] . tel:[phone] Referring Provider: Abel Meza, [address] [place] [address], [id number] . tel:[phone] [facility], [address] [place] [address], [id number], tel:[phone] [facility] routine exam (chief complaint) HypermetropiaAsti gmatism, unspecifiedPresby opiaSenile nuclear sclerosisDermatoc halasis 4 Larry Roman. [address] [place] [address], [address], [id number] . tel:[phone] Referring Provider: Abel Meza, [address] [place] [address], [address] . tel:[phone] Family History Family Member Type Diagnosis Age At Onset Problem (finding) Family history of catar act Problem (finding) Family history of hyper tension Problem (finding) Family history of Diabe sandi mellitus Problem (finding) Family history of Cance r, unknown Payers Payer name Insurance type Covered libertarian ID Authoriza tion(s) No Information Social History [...]
--- OUTSIDE RECORDS SUMMARY | 2024-06-01 09:36 | XMS_ITS | Clinical Summary ---
Author Organization [facility] Address [address] [place] [address] Care Team Providers Care Instrumentation Fitter Name Role Phone No, Physician Primary Care Provider [phone] Allergies Active Allergy Reactions Criticality Noted Date [...] This Problem was set by a rule ([facility]_EKS_BMI_PROB). This Problem was set by a rule ([facility]_EKS_BMI_PROB). Obstructive sleep apnea syndrome 01/06/2022 08/12/2022 Primary hypertension 01/06/2022 08/12/2022 Vitamin D deficiency 01/06/2022 08/12/2022 Seborrheic dermatitis 01/06/2022 08/12/2022 Seasonal allergic rhinitis 01/06/202208/12 Lumbar herniated disc 07/29/2021 08/12/2022 Overview (08/12/2022): Added automatically from request for surgery [id number] Type 2 diabetes mellitus 12/31/2019 023 Overview [...] 06/12/2019, 01/30/2016, Additional history exists Insurance MEDICARE [facility] MED[facility] Care Teams Instrumentation Fitter Relationship Specialty Start Date End Date No, Physician PCP - General 08/12/22
--- OUTSIDE RECORDS SUMMARY | 2024-06-01 09:36 | XMS_ITS | Encounter Summary ---
Author Organization [facility] Address [facility] [place] [address] Care Team Providers Care Construction Engineer Name Role Phone Keith Worthy DO Primary Care Provider + Encounter Details Date Type Department Care Team (Late st Contact Info) Description 09/22/2022 MyChart Message Enc [facility] [address] [place], [place] [address] [facility] Provider Air Quality Message Social History Tobacco [...] on filedocumented in this encounter Care Teams Construction Engineer Relationship Specialty Start Date End Date Keith Worthy DO [address] [place] [address] PCP - General FAMILY PRACTICE 08/24/22 documented as of this encounter
[2024-06-01 15:19] LABS: MALB Creatinine Ratio 4.1 mg/g (0-30); Microalbumin Urine Random 8.6 mg/L (0-16.7)
== END 2024-06-01 09:11 | disposition home or self-care (01) ==
LOC: ANHGOSHLAB 09:11
PROVIDERS: PCP Family Medicine; Visit Provider Family Medicine
DX: E11.9 Type 2 diabetes mellitus without complications (principal)
CPT/HCPCS: 82043

== ENCOUNTER 2024-07-04 13:09 | Outpatient (CLI) | payer MEDICARE, SELFPAY ==
--- OUTSIDE RECORDS SUMMARY | 2024-07-04 14:42 | XMS_ITS | Clinical Summary ---
Author Organization [facility] Address [address] [place] [address] Care Team Providers Care Php Architect Name Role Phone No, Physician Primary Care Provider [phone] Allergies Active Allergy Reactions Criticality Noted Date [...] This Problem was set by a rule ([facility]_EKS_BMI_PROB). This Problem was set by a rule ([facility]_EKS_BMI_PROB). Obstructive sleep apnea syndrome 01/06/2022 08/12/2022 Primary hypertension 01/06/2022 08/12/2022 Vitamin D deficiency 01/06/2022 08/12/2022 Seborrheic dermatitis 01/06/2022 08/12/2022 Seasonal allergic rhinitis 01/06/202208/12 Lumbar herniated disc 07/29/2021 08/12/2022 Overview (08/12/2022): Added automatically from request for surgery [id number] Type 2 diabetes mellitus 12/31/2019 023 Overview [...] Lipid Panel 09/04/2023 09/03/2022, 08/16/2018 Covid-19 Vaccine (2023-2 5 season) 2023 01/22/2021, 06/26/2020, 06/07/2020, Additional history exists Influenza Vaccine (Season Ended) 2024 01/12/2023, 12/26/2021, 12/09/2020, Additional history exists Zoster Vaccine Completed 04/06/2019, 11/18/2018 Pneumococcal vaccine 65+ Completed 022, 06/12/2019, 01/30/2016, Additional history exists Insurance MEDICARE [facility] MEDICARE Care Teams Php Architect Relationship Specialty Start Date End Date No, Physician PCP - General 08/12/22
--- OUTSIDE RECORDS SUMMARY | 2024-07-04 14:42 | XMS_ITS | Referral Summary ---
Author Organization [facility] Address [address] [place] [address] Care Team Providers Care Corporate Director Name Role Phone No, Physician Primary Care Provider [phone] Allergies Active Allergy Reactions Criticality Noted Date [...] This Problem was set by a rule ([facility]_EKS_BMI_PROB). This Problem was set by a rule ([facility]_EKS_BMI_PROB). Obstructive sleep apnea syndrome 01/06/2022 08/12/2022 Primary hypertension 01/06/2022 08/12/2022 Vitamin D deficiency 01/06/2022 08/12/2022 Seborrheic dermatitis 01/06/2022 08/12/2022 Seasonal allergic rhinitis 01/06/202208/12 Lumbar herniated disc 07/29/2021 08/12/2022 Overview (08/12/2022): Added automatically from request for surgery [id number] Type 2 diabetes mellitus 12/31/2019 023 Overview [...] of Treatment Not on file Insurance MEDICARE [facility] [employer] MEDICARE Care Teams Corporate Director Relationship Specialty Start Date End Date No, Physician PCP - General 08/12/22
--- OUTSIDE RECORDS SUMMARY | 2024-07-04 14:42 | XMS_ITS | Clinical Summary ---
Author Organization [facility] Address [address] [place] [address] Care Team Providers Care Briquette Operator Name Role Phone Keith Worthy DO [...] 500 MG tabletIndications:T ype 2 diabetes mellitus ([facility]) TAKE 2 TABLETS TWICE A DAY WITH [...] Irritable bowel syndrome 01/06/2022 Mild intermittent asthma ([facility]) 01/06/2022 Obstructive sleep apnea syndrome 01/06/2022 Primary hypertension 01/06/2022 Seasonal allergic rhinitis 01/06/2022 Vitamin D deficiency 01/06/2022 Type 2 diabetes mellitus ([facility]) 12/30 Overview (08/24/2022): Description: Description: Rheumatoid arthritis ([facility]) 1 Overview (08/24/2022): Description: Description: Description: Description: Resolved Problems Problem Noted Date Diagnosed Date Resolved Date Pre-syncope 06/23/2022 08/24/2022 Diverticulitis 01/06/2022 08/24/2022 Moderate episode of recurren t major depressive disorder 01/06/2022 08/24/2022 Non-toxic multinodular goiter 01/06/2022 08/24/2022 Seborrheic dermatitis 01/06/20222022 Lumbar herniated disc 07/29/20212022 Overview (08/24/2022): Added automatically from request for surgery [id number] Added automatically from request for surgery [id number] Neck pain 08/14/2019 08/24/2022 Overview (08/24/2022): Description: [...] Tdap) 03/02/2020 03/02/2010 Hemoglobin A1C 02/24/2023 08/24/2022, 05/27, 06/23/2022, Additional history exists Lipid Panel 09/04/2023 09/03/2022 COVID-19 Vaccine ( season) 2023 12/25/2021, 01/22/2021, 06/26/2020, Additional history exists PHQ-2 (Physician [place]) 03/28/2024 08/24/2022 Zoster Vaccines Completed 04/06/2019, 11/13/2018 [...] complication, without long-term current use of insulin Primary hypertension Hyperlipidemia, unspecified hyperlipidemia type Vitamin D deficiency Rheumatoid arthritis, involving unspecified site, unspecified whether rheumatoid factor present Need for hepatitis C screening test LIPID PANEL Routine 09/03/2022 9:09 AM CDT Type 2 diabetes mellitus with other circulatory complication, without long-term current use of insulin Primary hypertension Hyperlipidemia, unspecified hyperlipidemia type Vitamin D deficiency Rheumatoid arthritis, involving unspecified site, unspecified whether rheumatoid factor present HEMOGLOBIN, GLYCOSYLATED Routine 08/24/2022 Type 2 diabetes mellitus with other circulatory complication, without long-term current use of insulin from Last 3 Months or Most Recently Relevant to Health Maintenance Results * (ABNORMAL) LIPID PANEL (09/03/2022 9:09 AM CDT) [facility] CHOLESTEROL 178 <200 MG/DL 09/03/2022 3:23 PM CDT -[facility] TRIGLYCERIDES 216(H) <150 MG/DL 09/03/2022 3:23 PM CDT [facility] HDL 35(L) >40 MG/DL 09/03/2022 3:23 PM CDT [facility] LDL-C 100(H) <100 MG/DL 09/03/2022 3:23 PM CDT [facility] VLDL CALCULATION 43(H) 5 - 28 MG/DL 09/03/2022 3:23 PM CDT [facility] CHOL/HDL RATIO 5.1(H) 0.0 - 4.0 09/03/2022 3:23 PM CDT [facility] LDL/HDL 2.9(H) 0.41 - 2.13 09/03/2022 3:23 PM CDT [facility] NON HDL CHOLESTEROL 143(H) <140 MG/DL 09/03/2022 3:23 PM CDT [facility] 09/03/2022 9:09 AM CDT Keith Worthy LABORATORY Final Re sult [facility] [address] [place] [address], [place] [phone] * HEPATITIS C ANTIBODY (09/03/2022 9:09 AM CDT) HEPATITIS C AB NON-REACTI VE NON-REACT HIMANSHU 09/03/2022 7:50 PM CDT [facility] Comment: ANTIBODIES TO HCV NOT DETECTED. DOES NOT EXCLUDE THE POSSIBILITY OF EXPOSURE TO HCV. 09/03/2022 9:09 AM CDT Keith Edmond Worthy LABORATORY Final Re sult [facility] [address] [place] [address], [place] [phone] [id number] * A1C (BACK OFFICE) (08/24/2022) HGB A1C 7.4 % [facility] LEAH CHATOM 08/24/2022 Keith Worthy DO LABORATORY Final Re sult [facility] [address] [place] [address], [place] from Last 3 Months or Most Recently Relevant to Health Maintenance Insurance MEDICARE [facility] Care Teams Briquette Operator Relationship Specialty Start Date End Date Keith Worthy DO [address] [place] [id number] PCP - General FAMILY PRACTICE 08/24/22
--- OUTSIDE RECORDS SUMMARY | 2024-07-04 14:42 | XMS_ITS | Encounter Summary ---
Author Organization [facility] Address [facility] [place] [address] Care Team Providers Care Tea Leaf Reader Name Role Phone Keith Worthy DO Primary Care Provider + Encounter Details Date Type Department Care Team (Late st Contact Info) Description 09/22/2022 MyChart Message Enc [facility] [address] [place] [phone] [facility] Provider Air Quality Message Social History Tobacco [...] on filedocumented in this encounter Care Teams Tea Leaf Reader Relationship Specialty Start Date End Date Keith Worthy DO [address] [place] [address] PCP - General FAMILY PRACTICE 08/24/22 documented as of this encounter
--- OUTSIDE RECORDS SUMMARY | 2024-07-04 14:42 | XMS_ITS | Continuity of Care Document ---
Author Organization [facility] Address [address] [place] [address] Phone Care Team Providers Care Processes Chemical Design Engineer Name Role Phone Laura SUERO Rom Unavailable [...] spasms 750 MG - No Longer Active [place] 7.5 mg-325 mg tablet take 1 tablet by oral route every 6 hours as needed for pain - No Longer Active Aleve 220 mg tablet take 1 tablet by oral route every 12 hours as needed 220 MG - No Longer Active multivitamin tablet - No Longer Active Procedures Procedure Date S-Old-aazdaxpn/2 Views New Patient-comprehensive M-Wae-wxhwxelb/2 Views Office/outpatient visit, est, prob foc J G-Uvg-duazimuy/2 Views Post-op Exam SX PRE PAY Arthrodesis [...] Providers Copied on Encounter New Patient-comp rehensive [facility], [address] [place] [address], [id number], tel:[phone] [facility] Office neck pain (chief complaint) Radiculopathy , cervical regionArthrod esis statusBody mass index (BMI) 32.0-32.9, adult 1 Laura Cueto. [address] [place] [address], [id number], . tel:[phone] Referring Provider: Rom SUERO, [address] [place] [address], [id number] . tel:[phone] Office/outpa tient visit, est, prob foc [facility], [address] [place] [address], [id number], tel:[phone] [facility] Office neck pain (chief complaint) Radiculopathy , cervical regionElevate d blood-pressur e reading, w/o diagnosis of htnBody mass index (BMI) 32.0-32.9, adultCervical disc disorder at C5-C6 level with radiculopathy 7 Almita Montes De Oca. [address] [place] [address], [id number], . tel:[phone] Referring Provider: Tavon Recio MD, [address] [place] [address], [id number] . tel:[phone] [facility], [address] [place] [address], [id number], tel:[phone] [facility] Office Radiculopathy , cervical region 7 Almita Montes De Oca. [address] [place] [address], [id number], [place]. tel:[phone] [facility], [address] [place] [address], [id number], [place] tel:[phone] [facility] Office neck pain (chief complaint) Cervical disc disorder at C6-C7 level with radiculopathy Cervical disc disorder at C5-C6 level with radiculopathy Radiculopathy , cervical region 7 Terrance Arredondo. [address] [place] [address], [id number], [place]. tel:[phone] [facility], [address] [place] [address], [id number], [place] tel:[phone] [facility] Office Cervical disc disorder at C6-C7 level with radiculopathy 7 Almita Montes De Oca. [address] [place] [address], [id number], [place]. tel:[phone] [facility], [address] [place] [address], [id number], [place] tel:[phone] [facility] No Information 7 Almita Montes De Oca. [address] [place] [address], [id number], [place]. tel:[phone] [facility], [address] [place] [address], [id number], tel:[phone] [facility] No Information 7 Almita Montes De Oca. [address] [place] [address], [id number], [place]. tel:[phone] Referring Provider: Tavon Recio MD, [address] [place] [address], [id number] . tel:[phone] Established Patient-comp rehensive [facility], [address] [place] [address], [id number], [place] tel:[phone] [facility] Office neck pain (chief complaint) Cervical disc disorder at C5-C6 level with radiculopathy Cervical disc disorder at C6-C7 level with radiculopathy 6 Almita Montes De Oca. [address] [place] [address], [id number], [place]. tel:[phone] [facility], [address] [place] [address], [id number], [place] tel:[phone] [facility] Office Radiculopathy , cervical region 6 Almita Montes De Oca. [address] [place] [address], [id number], [place]. tel:[phone] Referring Provider: Arnulfo SUERO, [address] [place] [address], [id number] . tel:[phone] Established Patient-expa nded [facility] Sp[facility], [address] [place] [address], [id number], [place] tel:[phone] [facility] Office neck pain (chief complaint) Cervical stenosis of spineCervical radiculopathy 6 Terrance Arredondo. [address] [place] [address], [id number], [place]. tel:[phone] [facility], [address] [place] [address], [id number], [place] tel:[phone] [facility] Office lumbar spine (chief complaint) L-spine spondylosis Sep-2 4 Rodríguez DPT Rolanda. [address] [place] [address], [id number], . tel:[phone] Referring Provider: Tavon Recio MD, [address] [place] [address], [id number] . tel:[phone] Office/op Consult-deta manas [facility], [address] [place] [address], [id number], tel:[phone] [facility] Office back pain (chief complaint) L-spine spondylosis 4 Almita Montes De Oca. [address] [place] [address], [id number], [place]. tel:[phone] Established Patient-comp rehensive [facility], [address] [place] [address], [address] [place] [address], tel:[phone] [address] [place] [address] Office No Information 7 Almita Montes De Oca. [address] [place] [address], [id number], . tel:[phone] [facility], [address] [place] [address], [id number], tel:[phone] [facility] Office No Information 5 Jessika Vásquez. [address] [place] [address], [id number], . Family History Family Member Type Diagnosis Age At Onset Problem (finding) Family history of Diabe sandi mellitus Payers Payer name Insurance type Covered libertarian ID Authoriza tion(s) Medicare [facility] GBA MB [id number] BCBS OOS BL [id number] [place] [id number] Social History Type Description Quantity Date Captured [...] shoulder hemiarthroplastyin March of this year [facility] who presents as a new patient today [...] hemiarthroplasty in March of this year through [facility] who presents as a new patient today [...] and gait dysfunction. The patient has tried [place] 7.5-325mg and Robaxin 750mg for pain relief. 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 neck pain [...] He has decreased range of motion with adgq-md-fgtk head turning as well as looking up. [...]
--- OUTSIDE RECORDS SUMMARY | 2024-07-04 14:42 | XMS_ITS | Continuity of Care Document ---
Author Organization [facility] Address [address] [address] Phone Care Team Providers Care Machining Technician Name Role Phone Abel Juarez OD Unavailable Unavailable Allergies, Adverse Reactions, Alerts Substance Reaction Status Criticality amoxicillin Hives Active No Information Medications Medication Instructions Dosage Effective Dates (start - stop) Status Comments multivitamin tablet take 1 by Oral route every day 1 - Active PROBIOTIC (unknown strength) Not Available - Active Procedures Procedure Date Determination Refractive State 16 [facility] Medical Xm&Eval Comprhnsv Estab Pt 1/> Vst Determination Refractive State 14 [facility] Medical Xm&Eval Compre New Pt 1/> Vst Advance Directives Directive Yes / No Effective Date File Name No Information Encounters Encounter Description Practice Location Reason(s) For Visit Diagnoses Date Provider Providers Copied on Encounter [facility], [address] [place] [address], [id number], [place] tel:[phone] [facility] No Information 6 Larry Roman. [address] [place] [address], [id number] . tel:[phone] Referring Provider: Abel Meza, [address] [place] [address], [id number] . tel:[phone] [facility], [address] [place] [address], [id number], tel:[phone] [facility] routine exam (chief complaint) Hypermetropia, bilateralRegular astigmatism, bilateralPresbyop iaAge-related nuclear cataract, bilateral 6 Larry Roman. [address] [place] [address], [address], [id number] . tel:[phone] Referring Provider: Abel Meza, [address] [place] [address], [id number] . tel:[phone] [facility], [address] [place] [address], [id number], tel:[phone] [facility] routine exam (chief complaint) HypermetropiaAsti gmatism, unspecifiedPresby opiaSenile nuclear sclerosisDermatoc halasis 4 aLrry Roman. [address] [place] [address], [address], [id number] . tel:[phone] Referring Provider: Abel Meza, [address] [place] [address], [id number] . tel:[phone] Family History Family Member Type Diagnosis Age At Onset Problem (finding) Family history of catar act Problem (finding) Family history of hyper tension Problem (finding) Family history of Diabe sandi mellitus Problem (finding) Family history of Cance r, unknown Payers Payer name Insurance type Covered democrat ID Authoriza tion(s) No Information Social History [...] Infor adrianna Return in 1 year ai uJarez for complete eye exam or sooner as [...] as needed. Related to Hypermetropia, bilateral - RTC 1 year CEE ai ricci MDJ or sooner prn. Related to Hypermetropia - New glasses Rx given today. Re lated to Hypermetropia - New glasses Rx given today. Re lated to Astigmatism, unspecified - Discussed dx, no tx, monitor. Related to Dermatochalasis - Discussed dx, no tx, monitor. Related to Senile nuclear sclerosis - New glasses Rx given today. Re lated to Presbyopia Assessments Type Assessment Date No Information Patient Care Teams Name Effective Dates (start - stop) Status Members No Information
== END 2024-07-04 13:10 | disposition home or self-care (01) ==
LOC: ANHAUDIO 13:10
PROVIDERS: PCP Family Medicine; Visit Provider Family Medicine
DX: H90.3 Sensorineural hearing loss, bilateral (principal)
CPT/HCPCS: 92557; 92567

== ENCOUNTER 2024-09-07 08:08 | Outpatient (CLI) | payer MEDICARE, SELFPAY ==
--- OUTSIDE RECORDS SUMMARY | 2024-09-07 08:11 | XMS_ITS | Continuity of Care Document ---
Author Organization [facility] Address [address] [address] Phone Care Team Providers Care Steel Floor Pan Placing Supervisor Name Role Phone Abel Juarez OD Unavailable Unavailable Allergies, Adverse Reactions, Alerts Substance Reaction Status Criticality amoxicillin Hives Active No Information Medications Medication Instructions Dosage Effective Dates (start - stop) Status Comments multivitamin tablet take 1 by Oral route every day 1 - Active PROBIOTIC (unknown strength) Not Available - Active Procedures Procedure Date Determination Refractive State [address] [facility] Xm&Eval Comprhnsv Estab Pt 1/> Vst Determination Refractive State [address] [facility] Xm&Eval Compre New Pt 1/> Vst Advance Directives Directive Yes / No Effective Date File Name No Information Encounters Encounter Description Practice Location Reason(s) For Visit Diagnoses Date Provider Providers Copied on Encounter [facility], [address] [place] [address], [id number], [place] tel:[phone] [facility] No Information 6 Larry Roman. [address] [place] [address], [id number] . tel:[phone] Referring Provider: Abel Meza, [address] [place] [address], [id number] . tel:[phone] [facility], [address] [place] [address], [id number], tel:[phone] [facility] routine exam (chief complaint) Hypermetropia, bilateralRegular astigmatism, bilateralPresbyop iaAge-related nuclear cataract, bilateral 6 Larry Roman. [address] [place] [address], [address], [id number] . tel:[phone] Referring Provider: Abel Meza, [address] [place] [address], [id number] . tel:[phone] [facility], [address] [place] [address], [id number], tel:[phone] [facility] routine exam (chief complaint) HypermetropiaAsti gmatism, unspecifiedPresby opiaSenile nuclear sclerosisDermatoc halasis 4 Larry Roman. [address] [place] [address], [address], [id number] . tel:[phone] Referring Provider: Abel Meza, [address] [place] [address], [id number] . tel:[phone] Family History Family Member Type Diagnosis Age At Onset Problem (finding) Family history of catar act Problem (finding) Family history of hyper tension Problem (finding) Family history of Diabe sandi mellitus Problem (finding) Family history of Cance r, unknown Payers Payer name Insurance type Covered alliance party ID Authoriza tion(s) No Information Social [...]
--- OUTSIDE RECORDS SUMMARY | 2024-09-07 08:11 | XMS_ITS | Clinical Summary ---
Author Organization [facility] Address [address] [place] [address] Care Team Providers Care Molding Line Assistant Name Role Phone No, Physician Primary Care Provider Allergies Active Allergy Reactions Criticality Noted Date [...] This Problem was set by a rule ([facility]_EKS_BMI_PROB). This Problem was set by a rule ([facility]_EKS_BMI_PROB). Obstructive sleep apnea syndrome 01/06/2022 08/12/2022 Primary hypertension 01/06/2022 08/12/2022 Vitamin D deficiency 01/06/2022 08/12/2022 Seborrheic dermatitis 01/06/2022 08/12/2022 Seasonal allergic rhinitis 01/06/202208/12 Lumbar herniated disc 07/29/2021 08/12/2022 Overview (08/12/2022): Added automatically from request for surgery [id number] Type 2 diabetes mellitus 12/31/2019 023 Overview [...] 2:01 PM CDT Height 185.4 cm (6' 1) 08/12/2022 2:01 PM CDT Body Mass Index [...] 06/12/2019, 01/30/2016, Additional history exists Insurance MEDICARE [facility] MEDICARE Care Teams Molding Line Assistant Relationship Specialty Start Date End Date No, Physician PCP - General 08/12/22
--- OUTSIDE RECORDS SUMMARY | 2024-09-07 08:11 | XMS_ITS | Referral Summary ---
Author Organization [facility] Address [address] [place] [address] Care Team Providers Care Superintendent Radio Communications Name Role Phone No, Physician Primary Care Provider [phone] Allergies Active Allergy Reactions Criticality Noted Date [...] This Problem was set by a rule ([facility]_EKS_BMI_PROB). This Problem was set by a rule ([facility]_EKS_BMI_PROB). Obstructive sleep apnea syndrome 01/06/2022 08/12/2022 Primary hypertension 01/06/2022 08/12/2022 Vitamin D deficiency 01/06/2022 08/12/2022 Seborrheic dermatitis 01/06/2022 08/12/2022 Seasonal allergic rhinitis 01/06/202208/12 Lumbar herniated disc 07/29/2021 08/12/2022 Overview (08/12/2022): Added automatically from request for surgery [id number] Type 2 diabetes mellitus 12/31/2019 023 Overview [...] of Treatment Not on file Insurance MEDICARE [facility] [employer] [facility] MEDICARE Care Teams Superintendent Radio Communications Relationship Specialty Start Date End Date No, Physician PCP - General 08/12/22
--- OUTSIDE RECORDS SUMMARY | 2024-09-07 08:11 | XMS_ITS | Continuity of Care Document ---
Author Organization [facility] Address [address] [place] [address] Phone Care Team Providers Care Card Sorter Name Role Phone Laura SUERO Rom Unavailable [...] spasms 750 MG - No Longer Active Delphos 7.5 mg-325 mg tablet take 1 tablet by oral route every 6 hours as needed for pain - No Longer Active Aleve 220 mg tablet take 1 tablet by oral route every 12 hours as needed 220 MG - No Longer Active multivitamin tablet - No Longer Active Procedures Procedure Date Q-Qjj-zrgroduc/2 Views New Patient-comprehensive H-Ruu-hfgszaru/2 Views Office/outpatient visit, est, prob foc J W-Kuj-moffwosn/2 Views Post-op Exam SX PRE PAY Arthrodesis [...] Providers Copied on Encounter New Patient-comp rehensive [facility], [address] [place] [address], [id number], tel:[phone] [facility] Office neck pain (chief complaint) Radiculopathy , cervical regionArthrod esis statusBody mass index (BMI) 32.0-32.9, adult 1 Laura Cueto. [address] [place] [address], [id number], . tel:[phone] Referring Provider: Rom SUERO, [address] [place] [address], [id number] . tel:[phone] Office/outpa tient visit, est, prob foc [facility], [address] [place] [address], [id number], tel:[phone] [facility] Office neck pain (chief complaint) Radiculopathy , cervical regionElevate d blood-pressur e reading, w/o diagnosis of htnBody mass index (BMI) 32.0-32.9, adultCervical disc disorder at C5-C6 level with radiculopathy 7 Almita Montes De Oca. [address] [place] [address], [id number], . tel:[phone] Referring Provider: Tavon Recio MD, [address] [place] [address], [id number] . tel:[phone] [facility], [address] [place] [address], [id number], tel:[phone] [facility] Office Radiculopathy , cervical region 7 Almita Montes De Oca. [address] [place] [address], [id number], [place]. tel:[phone] [facility], [address] [place] [address], [id number], [place] tel:[phone] [facility] Office neck pain (chief complaint) Cervical disc disorder at C6-C7 level with radiculopathy Cervical disc disorder at C5-C6 level with radiculopathy Radiculopathy , cervical region 7 Terrance Arredondo. [address] [place] [address], [id number], [place]. tel:[phone] [facility], [address] [place] [address], [id number], [place] tel:[phone] [facility] Office Cervical disc disorder at C6-C7 level with radiculopathy 7 Almita Montes De Oca. [address] [place] [address], [id number], [place]. tel:[phone] [facility], [address] [place] [address], [id number], [place] tel:[phone] [facility] No Information 7 Almita Montes De Oca. [address] [place] [address], [id number], [place]. tel:[phone] [facility], [address] [place] [address], [id number], tel:[phone] [facility] No Information 7 Almita Montes De Oca. [address] [place] [address], [id number], [place]. tel:[phone] Referring Provider: Tavon Recio MD, [address] [place] [address], [id number] . tel:[phone] Established Patient-comp rehensive [facility], [address] [place] [address], [id number], [place] tel:[phone] [facility] Office neck pain (chief complaint) Cervical disc disorder at C5-C6 level with radiculopathy Cervical disc disorder at C6-C7 level with radiculopathy 6 Almita Montes De Oca. [address] [place] [address], [id number], [place]. tel:[phone] [facility], [address] [place] [address], [id number], [place] tel:[phone] 6224 [facility] Office Radiculopathy , cervical region 6 Almita Montes De Oca. [address] [place] [address], [id number], [place]. tel:[phone] Referring Provider: Arnulfo SUERO, [address] [place] [address], [id number] . tel:[phone] Established Patient-expa nded [facility], [address] [place] [address], [id number], [place] tel:[phone] [facility] Office neck pain (chief complaint) Cervical stenosis of spineCervical radiculopathy 6 Terrance Arredondo. [address] [place] [address], [id number], [place]. tel:[phone] [facility], [address] [place] [address], [id number], [place] tel:[phone] [facility] Office lumbar spine (chief complaint) L-spine spondylosis Sep-2 4 Rodríguez DPT Rolanda. [address] [place] [address], [id number], . tel:[phone] Referring Provider: Tavon Recio MD, [address] [place] [address], [id number] . tel:[phone] Office/op Consult-deta manas [facility], [address] [place] [address], [id number], tel:[phone] [facility] Office back pain (chief complaint) L-spine spondylosis 4 Almita Montes De Oca. [address] [place] [address], [id number], [place]. tel:[phone] Established Patient-comp rehensive [facility], [address] [place] [address], [address] [place] [address], tel:[phone] [address] [place] [address] Office No Information 7 Almita Montes De Oca. [address] [place] [address], [id number], . tel:[phone] [facility], [address] [place] [address], [id number], tel:[phone] [phone] [facility] Office No Information 5 Jessika Vásquez. [address] [place] [address], [id number], . Family History Family Member Type Diagnosis Age At Onset Problem (finding) Family history of Diabe sandi mellitus Payers Payer name Insurance type Covered libertarian ID Authoriza tion(s) Medicare [facility] GBA MB [id number] BCBS OOS BL [id number] [facility] [id number] Social History Type Description Quantity Date Captured [...] shoulder hemiarthroplastyin March of this year through [facility] who presents as a new patient today [...] hemiarthroplasty in March of this year through [facility] who presents as a new patient today [...] and gait dysfunction. The patient has tried Delphos 7.5-325mg and Robaxin 750mg for pain relief. 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 neck pain [...] He has decreased range of motion with xzpz-lz-ealh head turning as well as looking up. [...]
[2024-09-07 12:41] LABS: Anion Gap 8 mmol/L (4-12); Blood Urea Nitrogen 14 mg/dL (9-20); Calcium 9.2 mg/dL (8.4-10.2); Carbon Dioxide 26 mmol/L (22-30); Chloride 105 mmol/L (98-107); Estimated Glomerular Filt Rate > 60; Glucose 111 mg/dL (65-110); Sodium 139 mmol/L (137-145)
[2024-09-07 13:12] LABS: Thyroid Stimulating Hormone 0.911 uIU/mL (0.465-4.680)
[2024-09-12 16:04] LABS: Testosterone Free 57.6 pg/mL (30.0-135.0); Testosterone Total 292 ng/dL (250-1100)
== END 2024-09-07 08:09 | disposition home or self-care (01) ==
LOC: ANHGOSHLAB 08:09
PROVIDERS: PCP Family Medicine; Visit Provider Family Medicine
DX: F32.9 Major depressive disorder, single episode, unspecified (principal); R53.83 Other fatigue; E87.5 Hyperkalemia
CPT/HCPCS: 36415; 80048; 82306; 82607; 84402; 84403; 84443

== ENCOUNTER 2024-12-27 09:40 | Outpatient (CLI) | payer MEDICARE, SELFPAY ==
--- OUTSIDE RECORDS SUMMARY | 2015-05-13 19:00 | XMS_ITS | Continuity of Care Document ---
Author Organization [facility] Address [address] [address] Phone Care Team Providers Care Product Development Name Role Phone Abel Juarez OD Unavailable Unavailable Allergies, Adverse Reactions, Alerts Substance Reaction Status Criticality amoxicillin Hives Active No Information Medications Medication Instructions Dosage Effective Dates (start - stop) Status Comments multivitamin tablet take 1 by Oral route every day 1 - Active PROBIOTIC (unknown strength) Not Available - Active Procedures Procedure Date Determination Refractive State 16 [facility] Medical Xm&Eval Comprhnsv Estab Pt 1/> Vst Determination Refractive State 14 [facility] Medical Xm&Eval Compre New Pt 1/> Vst Advance Directives Directive Yes / No Effective Date File Name No Information Encounters Encounter Description Practice Location Reason(s) For Visit Diagnoses Date Provider Providers Copied on Encounter [facility], [address] [place] [address], [id number], [place] tel:[phone] [facility] No Information 6 Larry Roman. [address] [place] [address], [id number] . tel:[phone] Referring Provider: Abel Meza, [address] [place] [address], [id number] . tel:[phone] [facility], [address] [place] [address], [id number], tel:[phone] [facility] routine exam (chief complaint) Hypermetropia, bilateralRegular astigmatism, bilateralPresbyop iaAge-related nuclear cataract, bilateral 6 Larry Roman. [address] [place] [address], [address], [id number] . tel:[phone] Referring Provider: Abel Meza, [address] [place] [address], [id number] . tel:[phone] [facility], [address] [place] [address], [id number], tel:[phone] [facility] routine exam (chief complaint) HypermetropiaAsti gmatism, unspecifiedPresby opiaSenile nuclear sclerosisDermatoc halasis 4 Larry Roman. [address] [place] [address], [address], [id number] . tel:[phone] Referring Provider: Abel Meza, [address] [place] [address], [id number] . tel:[phone] Family History Family Member Type Diagnosis Age At Onset Problem (finding) Family history of catar act Problem (finding) Family history of hyper tension Problem (finding) Family history of Diabe sandi mellitus Problem (finding) Family history of Cance r, unknown Payers Payer name Insurance type Covered constitution party ID Authoriza tion(s) No Information Social History Type Description Quantity Date Captured Comments Sex Male Smoking Status No Information Chief Complaint And Reason For Visit No Information Reason For Referral Reason For Referral No Information History Of Present Illness Encounter Date Complaint History Of Prese nt Illness routine exam Pt here for CEE. Decreased N>DVA OU x 4-5 months. No contact lens wear. Pt interested in cataract surgery if possible; had surgery and very happy with vision. No gtts. No eye pain. routine exam The 58 year old male presents for evaluation of routine exam in the right eye and left eye. Pt states DVA and night VA isn't as clear as it used to be; not much change. No H/A c/o. Some dryness, tearing and itching c/o are mostly late evenings. JW Functional Status Date Functional Assessmen t No Information Instructions Date Instruction Additional Infor adrianna Return in 1 year ai Juarez for complete eye exam or sooner as needed. Related to Hypermetropia, bilateral Impression/Plan - Di scussed diagnosis and findings with patient, no treatment at this time, will continue to monitor. Related to Age-related nuclear cataract, bilateral Impression/Plan - Ne w glasses prescription given today. Related to Presbyopia Impression/Plan - Ne w glasses prescription given today. Related to Regular astigmatism, bilateral Impression/Plan - Ne w glasses prescription given today. Related to Hypermetropia, bilateral Follow up - Return i n [address] Abel Juarez for complete eye exam or sooner as needed. Related to Hypermetropia, bilateral - Discussed dx, no tx, monitor. Related to Dermatochalasis - Discussed dx, no tx, monitor. Related to Senile nuclear sclerosis - New glasses Rx given today. Re lated to Presbyopia - New glasses Rx given today. Re lated to Astigmatism, unspecified - New glasses Rx given today. Re lated to Hypermetropia - RTC 1 year CEE ai ricci MDJ or sooner prn. Related to Hypermetropia Assessments Type Assessment Date No Information Patient Care Teams Name Effective Dates (start - stop) Status Members No Information
--- OUTSIDE RECORDS SUMMARY | 2020-08-19 04:30 | XMS_ITS | Continuity of Care Document ---
Author Organization [facility] Address [address] [place] [address] Phone Care Team Providers Care Maintenance And Engineering Manager Name Role Phone Laura SUERO Rom Unavailable Unavailab le Allergies, Adverse Reactions, Alerts Substance Reaction Status Criticality clindamycin GI Symptoms Active No Information AMOXICILLIN TRIHYDRATE Active No In formation Medications Medication Instructions Dosage Effective Dates (start - stop) Status Comments PRAVASTATIN SODIUM (unknown strength) Not Available - Active metformin (unknown strength) Not Available - Active TELMISARTAN (unknown strength) take 1 tablet by oral route every day Not Available - Active potassium 99 mg tablet - Active Robaxin-750 750 mg tablet take 1 tablet by ORAL route every 8 hours prn spasms 750 MG - No Longer Active Pablo 7.5 mg-325 mg tablet take 1 tablet by oral route every 6 hours as needed for pain - No Longer Active Aleve 220 mg tablet take 1 tablet by oral route every 12 hours as needed 220 MG - No Longer Active multivitamin tablet - No Longer Active Procedures Procedure Date N-Ftq-mmvpnclk/2 Views New Patient-comprehensive D-Jdv-sipzfxwv/2 Views Office/outpatient visit, est, prob foc J H-Xzz-zfatvotx/2 Views Post-op Exam SX PRE PAY Arthrodesis Anterior Interbody Cervical Anterior Instrumentation Arthrodesis Anterior Cervical Each Add. Level Insertion Interbody Bio Dev W Ant Fus Ea Intersp Allograft/morselized Autograft/local-same Incision 7 Resident Present Established Patient-comprehensive MRI Spinal/cerv W/o Contrast Established Patient-expanded Physical Therapy Evaluation Therapeutic Exercise, ea 15 minutes Office/op Consult-detailed Established Patient-comprehensive Established Patient-expanded Advance Directives Directive Yes / No Effective Date File Name No Information Encounters Encounter Description Practice Location Reason(s) For Visit Diagnoses Date Provider Providers Copied on Encounter New Patient-comp rehensive [facility], [address] [place] [address], [id number], tel:[phone] [facility] Office neck pain (chief complaint) Radiculopathy , cervical regionArthrod esis statusBody mass index (BMI) 32.0-32.9, adult 1 Laura Cueto. [address] [place] [address], [id number], . tel:[phone] Referring Provider: Rom SUERO, [address] [place] [address], [id number] . tel:[phone] Office/outpa tient visit, est, prob foc [facility], [address] [place] [address], [id number], tel:[phone] [facility] Office neck pain (chief complaint) Radiculopathy , cervical regionElevate d blood-pressur e reading, w/o diagnosis of htnBody mass index (BMI) 32.0-32.9, adultCervical disc disorder at C5-C6 level with radiculopathy 7 Almita Montes De Oca. [address] [place] [address], [id number], . tel:[phone] Referring Provider: Tavon Recio MD, [address] [place] [address], [id number] . tel:[phone] [facility], [address] [place] [address], [id number], tel:[phone] [facility] Office Radiculopathy , cervical region 7 Almita Montes De Oca. [address] [place] [address], [id number], [place]. tel:[phone] [facility], [address] [place] [address], [id number], [place] tel:[phone] [facility] Office neck pain (chief complaint) Cervical disc disorder at C6-C7 level with radiculopathy Cervical disc disorder at C5-C6 level with radiculopathy Radiculopathy , cervical region 7 Terrance Arredondo. [address] [place] [address], [id number], [place]. tel:[phone] [facility], [address] [place] [address], [id number], [place] tel:[phone] [facility] Office Cervical disc disorder at C6-C7 level with radiculopathy 7 Almita Montes De Oca. [address] [place] [address], [id number], [place]. tel:[phone] [facility], [address] [place] [address], [id number], [place] tel:[phone] [facility] No Information 7 Almita Montes De Oca. [address] [place] [address], [id number], [place]. tel:[phone] [facility], [address] [place] [address], [id number], tel:[phone] [facility] No Information 7 Almita Montes De Oca. [address] [place] [address], [id number], [place]. tel:[phone] Referring Provider: Tavon Recio MD, [address] [place] [address], [id number] . tel:[phone] Established Patient-comp rehensive [facility], [address] [place] [address], [id number], [place] tel:[phone] [facility] Office neck pain (chief complaint) Cervical disc disorder at C5-C6 level with radiculopathy Cervical disc disorder at C6-C7 level with radiculopathy 6 Almita Montes De Oca. [address] [place] [address], [id number], [place]. tel:[phone] [facility], [address] [place] [address], [id number], [place] tel:[phone] [facility] Office Radiculopathy , cervical region 6 Almita Montes De Oca. [address] [place] [address], [id number], [place]. tel:[phone] Referring Provider: Arnulfo SUERO, [address] [place] [address], [id number] . tel:[phone] Established Patient-expa nded [facility], [address] [place] [address], [id number], [place] tel:[phone] [facility] Office neck pain (chief complaint) Cervical stenosis of spineCervical radiculopathy 6 Terrance Arredondo. [address] [place] [address], [id number], [place]. tel:[phone] [facility], [address] [place] [address], [id number], [place] tel:[phone] [facility] Office lumbar spine (chief complaint) L-spine spondylosis Sep-2 4 Rodríguez DPT Rolanda. [address] [place] [address], [id number], . tel:[phone] Referring Provider: Tavon Recio MD, [address] [place] [address], [id number] . tel:[phone] Office/op Consult-deta manas [facility], [address] [place] [address], [id number], tel:[phone] [facility] Office back pain (chief complaint) L-spine spondylosis 4 Almita Montes De Oca. [address] [place] [address], [id number], [place]. tel:[phone] Established Patient-comp rehensive [facility], [address] [place] [address], [address] [place] [address], tel:[phone] [place] [address] Office No Information 7 Almita Montes De Oca. [address] [place] [address], [id number], . tel:[phone] [facility], [address] [place] [address], [id number], tel:[phone] [facility] Office No Information 5 Jessika Vásquez. [address] [place] [address], [id number], . Family History Family Member Type Diagnosis Age At Onset Problem (finding) Family history of Diabe sandi mellitus Payers Payer name Insurance type Covered republican ID Authoriza tion(s) Medicare [facility] GBA MB [id number] BCBS OOS BL [id number] [facility] [id number] Social History Type Description Quantity Date Captured Comments Alcohol Use Details Unknown Caffeine Use Details Unknown Tobacco Use Status Never smoked tobacco 2020 Smoking Status Never smoker Non-Smoking Tobacco Use Details : No Details Available : No Details Available Sex Male Sexual Orientation Choose not to disclose Vital Signs Date / Time: Height Weight BMI Pulse Rate Blood Pressure Temperature Respiratory Rate Body Surface Area Head Circumference Head Circ. Percentile Wt./Colt. Percentile BMI percentile Pulse Ox Inhaled Ox 9:19 AM 73.00 in 112.037 kg (247.00 lbs) 32.5 9 kg/m eter (2) 98.00 F 16 /min Chief Complaint And Reason For Visit From encounter dated '08/19/2020 09:30'. neck pain (chief complaint). Description: The patient is a 65-year-old man with history of C5-7 anterior cervical discectomy and fusion by Dr. Recio in 2016 as well as right shoulder hemiarthroplastyin March of this year through [facility] who presents as a new patient today with complaints of neck and right shoulder pain. He reports that he has had some degree of neck pain with radiation into the top of his right shoulder since surgery which has been exacerbated by his shoulder issues recently. The patient endorses muscle tightness that is worse throughout the day and somewhat alleviated by lying flat with a pillow appropriately positioned. He takes Tylenol intermittently which helps and is also in physical therapy currently for the shoulder. The patient states that his therapist has done some massage on the neck which helped temporarily. He does note some weakness in the right arm due to a shoulder surgery but is able to fully raise the arm overhead. The patient denies clumsin ess of the hands, gait imbalance, bowel or bladder dysfunction. Reason For Referral Reason For Referral No Information History Of Present Illness Encounter Date Complaint History Of Prese nt Illness neck pain The patient is a 65-year-old man with history of C5-7 anterior cervical discectomy and fusion by Dr. Recio in 2016 as well as right shoulder hemiarthroplasty in March of this year through [facility] who presents as a new patient today with complaints of neck and right shoulder pain. He reports that he has had some degree of neck pain with radiation into the top of his right shoulder since surgery which has been exacerbated by his shoulder issues recently. The patient endorses muscle tightness that is worse throughout the day and somewhat alleviated by lying flat with a pillow appropriately positioned. He takes Tylenol intermittently which helps and is also in physical therapy currently for the shoulder. The patient states that his therapist has done some massage on the neck which helped temporarily. He does note some weakness in the right arm due to a shoulder surgery but is able to fully raise the arm overhead. The patient denies clumsiness of the hands, gait imbalance, bowel or bladder dysfunction. neck pain Lee Myers is a 5 2 year old male with a history of cervical spondylosis and stenosis of C5-C6 and C6-C7, who is seen today in clinic for a 3 month status post evaluation of his C5-C7 ACDF done on 04/19/2016. The patient states is overall mostly doing well but complains of some neck pain that radiates to his right shoulder. He also relays that he has been experiencing some intermittent lower back pain that radiates to his right anterior leg and knee when he is driving. The patient also reports that he is experiencing some numbness/tingling in his right anterior leg and knee when driving. He denies weakness, bowel/bladder dysfunction, and gait dysfunction. The patient has tried Pablo 7.5-325mg and Robaxin 750mg for pain relief. He is also taking Aleve 220mg. neck pain This is a 61-yea r-old male with history of cervical spondylosis and stenosis C5-C6 and C6-C7 right, clinic today for 4 week postoperative visit for routine follow-up. He underwent C5-C6 and C6-C7 ACDF on April 19, 2016 and arrives today for routine follow-up. He complains of posterior neck pain with some tightness. This is a 3 out of 10 and intermittent. He is significantly improved from his preoperative state. He denies any dysphagia. He denies any incisional drainage or signs of infection. He has some radiating pain in his left upper extremity but this has significantly improved from his preoperative state. He denies chest pain shortness of breath calf pain or tenderness. neck pain Lee Myers is a 5 1 year old male, seen as an established patient, with a history of lumbar spondylosis and stenosis, who presents to the clinic for neck and right upper extremity pain. He rates this pain a 5/10 up to a 10/10 at times. He relates that his range of motion looking up is limited and increases his neck pain. He reports constant right-sided neck pain that radiates to the right shoulder, exterior arm, ulnar side and the second to fifth digits. He also states he has intermittent pins, needles and numbness in the same distribution. He states that he has intermittent right upper extremity weakness, which causes him to occasionally drop objects. 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 neck pain 60-year-old male who is known to our practice for history of lumbar spondylosis and stenosis arrived to clinic today complaining of neck pain. He was last seen in 2013 with complaints of low back pain however he has had issues with chronic neck pain for 25 years. Over the last year and a half his neck pain is progressively worsened. He states that this used to be intermittent and now this is constant. He has constant right-sided neck pain that radiates to the right upper extremity right outer arm into his elbow. He has decreased range of motion with ggxc-xb-lusz head turning as well as looking up. This has caused him to have to retire given his job requirements for excessive head movements and neck range of motion. He has numbness and tingling across his right hand. He notes weakness in his right upper extremity. His radiating radiculopathy occurs intermittently but his neck pain hurts constantly. He denies bowel and bladder incontinence, gait abnormality or instability. lumbar spine Mr Post is a 58 year old male who complains of lumbar spine. back pain Lee Post is a 4 9 year old male who comes to clinic with ongoing and progressive lower back pain. Pain typically radiates down the posterior right leg to the knee but occasionally radiates to the anterior left thigh. When sitting in the car for a long period of time, he reports burning and pins and needles so that he must stop and walk around. He also reports similar symptoms when walking for long periods and leaning over a machine at work. He reports he has had back pain for most of his adult life after injuring his back many years ago. He denies weakness or bowel and bladder incontinence. He usually takes over the counter medication for his pain with little relief. Functional Status Date Functional Assessmen t Pain Score 3/10 Instructions Date Instruction Additional Infor mation Giving encouragement to exercise Related to Body mass index (BMI) 32.0-32.9, adult Hypertension education Related t o Elevated blood-pressure reading, without diagnosis of hypertension Assessments Type Assessment Date assessment Radiculopathy, cervical region M assessment Arthrodesis status assessment Body mass index (BMI) 32.0-32.9, adult Patient Care Teams Name Effective Dates (start - stop) Status Members No Information
--- OUTSIDE RECORDS SUMMARY | 2024-12-27 10:11 | XMS_ITS | Clinical Summary ---
Author Organization [facility] Address [address] [place] [address] Care Team Providers Care Fleet Manager/Dispatch Name Role Phone No, Physician Primary Care [...] This Problem was set by a rule ([facility]_EKS_BMI_PROB). This Problem was set by a rule ([facility]_EKS_BMI_PROB). Obstructive sleep apnea syndrome 01/06/2022 08/12/2022 Primary hypertension 01/06/2022 08/12/2022 Vitamin D deficiency 01/06/2022 08/12/2022 Seborrheic dermatitis 01/06/2022 08/12/2022 Seasonal allergic rhinitis 01/06/202208/12 Lumbar herniated disc 07/29/2021 08/12/2022 Overview (08/12/2022): Added automatically from request for surgery [id number] Type 2 diabetes mellitus 12/31/2019 023 Overview [...] History Medical History Date Comments Diabetes mellitus Family History Medical History Relation Name Comments [...] Foot Exam 1954 Hepatitis B Screening 1972 Abdominal Aortic Aneurysm (A AA) Screen 2019 Well Visit 65+ 2019 DTaP/Tdap/Td Vaccine (2 - Td or Tdap) 03/02/2020 03/02/2010 Lipid Panel 09/04/2023 09/03/2022, 08/16/2018 Covid-19 Vaccine (5 - 2024-2 6 season) 2024 01/22/2021, 06/26/2020, 06/07/2020, Additional history exists Influenza Vaccine (#1) 2024 3, 12/26/2021, 12/09/2020, Additional history exists Zoster Vaccine Completed 04/06/2019, 11/18/2018 Pneumococcal vaccine 65+ Completed 022, 06/12/2019, 01/30/2016, Additional history exists Insurance MEDICARE [facility] MEDICARE Care Teams Fleet Manager/Dispatch Relationship Specialty Start Date End Date No, Physician PCP - General 08/12/22
[2024-12-27 13:03] LABS: Hematocrit 40.3 % (42.0-52.0); Hemoglobin 12.6 g/dL (14.0-18.0); Immature Granulocyte Percent A 0.2 % (0-0.5); Lymphocytes Absolute Auto 1.55 K/mm3 (0.9-3.2); Mean Corpuscular HGB Conc 31.3 g/dl (32-36); Mean Corpuscular Hemoglobin 29.8 pg (26-34); Mean Corpuscular Volume 95.3 fl (80-100); Nucleated Red Blood Cells Absolute Auto 0.000 K/mm3 (0.0-0.012); Nucleated Red Blood Cells Perc 0.0 % (0.0-0.2); Platelet Count Result 182 k/mm3 (150-375); Red Blood Count 4.23 M/mm3 (4.6-6.20); White Blood Count 4.3 K/mm3 (4.5-10.0)
[2024-12-27 13:40] LABS: Prostate Specific Antigen 2.2 ng/mL (< OR = 4.0)
[2024-12-27 13:58] LABS: Hemoglobin A1C 6.0 % (<5.7)
[2024-12-31 04:06] LABS: Free Testosterone (Direct) 5.7 pg/mL (6.6-18.1)
== END 2024-12-27 09:41 | disposition home or self-care (01) ==
PROVIDERS: PCP Family Medicine; Visit Provider Family Medicine
DX: R53.83 Other fatigue (principal); E11.9 Type 2 diabetes mellitus without complications; F32.9 Major depressive disorder, single episode, unspecified; Z12.5 Encounter for screening for malignant neoplasm of prostate; R79.89 Other specified abnormal findings of blood chemistry
CPT/HCPCS: 36415; 83036; 84153; 84402; 84403; 85025; G0103